=== PATIENT | male | born 1970 | race American Indian/Alaskan Native ===

== ENCOUNTER 2019-03-11 22:19 | Inpatient (IN) | payer MEDICAID ==
[~2019-03-11] VITALS: Ht 180.3 cm; Wt 70.5 kg
[2019-03-12 01:00] VITALS: BP 119/80
--- NOTE | 2019-03-12 01:10 | NUR ---
ROUTEMAN NOTE: LEGAL HOLD: 5150 for DTS. Self-inflicted laceration on Lt forearm. Client used a razor to cut arm down to the tendon requiring sutures. Hx ETOH use. THIS SHIFT: Client transferred from [facility], [facility]. Client arrived on unit at 00:30 accompanied by Buster Conde and . Client stated, "I have no family." and reported feelings of hopelessness and depression. Client is currently homeless. Client is a thin, 48 yo male, who appears older than his stated age. Reports "binge" drinking and regularly drinks "four drinks a day". Denies any ETOH withdrawal symptom. Client showered, personal belongings were inventoried, given a sandwich a beverage. Cooperative with admission. Client reported to staff at [facility], "I'll kill myself if I leave." Client is a high risk for suicide. Needs med stabilization for depression.
[2019-03-12] MEDS ORDERED: loperamide 2mg capsule PO PRN (01:25)
[2019-03-12] MEDS ORDERED: acetaminophen 325mg tablet PO PRN ×2 (01:25)
[2019-03-12] MEDS ORDERED: hydrOXYzine 25 MG tablet PO PRN (01:30)
[2019-03-12] MEDS ORDERED: mag hydrox/Alum hydrox/simeth 30ml oral suspension PO PRN (01:30)
[2019-03-12] MEDS ORDERED: LORazepam 1 MG tablet PO PRN (01:30)
[2019-03-12] MEDS ORDERED: magnesium hydroxide 30ml (MOM) UD suspension PO PRN (01:30)
[2019-03-12] MEDS ORDERED: Melatonin 3mg tablet PO PRN (01:55)
[2019-03-12] MEDS: ibuprofen tablet 400 MG TABLET PO PRN ×2 (01:56→14:00)
[2019-03-12 07:39] VITALS: BP 115/65
[2019-03-12] MEDS: NICOTINE POLACRILEX 2 MG LOZENGE BC PRN ×4 (07:39→20:37)
[2019-03-12 09:05] LABS: HEMOGLOBIN A1C 5.3 % (4.5-6.2)
[2019-03-12 09:09] LABS: CHOL/HDL RATIO 2.5 (0.00-4.99); CHOLESTEROL 188 MG/DL (0-200); HDL CHOLESTEROL 76 MG/DL (35-60); LDL CHOLESTEROL 101 MG/DL (50-100); TRIGLYCERIDES 99 MG/DL (20-135)
--- NOTE | 2019-03-12 14:16 | NUR ---
Procedure note: Redressed client bandage on left forearm due to patient request. Lesion is well approximated with no signs of erythema or edema noted. There was a scant amount of dried blood on the old dressing but no odor or S/S of infection were noted. Client tolerated procedure very well.
[2019-03-12] MEDS ORDERED: HYDROcodone/acetaminophen 10/325mg tab PO PRN (14:30)
--- NOTE | 2019-03-12 15:37 | NUR ---
RN Progress note: Jin Report received from Janae MENDOZA Why are they here: LEGAL HOLD: 5150 for DTS. Self-inflicted laceration on Lt forearm. Client used a razor to cut arm down to the tendon requiring sutures. Hx ETOH use. Client transferred from [facility], [facility]. Client arrived on unit at 00:30 accompanied by Buster Conde and . Client stated, "I have no family." and reported feelings of hopelessness and depression. Client is currently homeless. Client is a thin, 48 yo male, who appears older than his stated age. Reports "binge" drinking and regularly drinks "four drinks a day". Denies any ETOH withdrawal symptom. Client showered, personal belongings were inventoried, given a sandwich a beverage. Cooperative with admission. Client reported to staff at [facility], "I'll kill myself if I leave." Client is a high risk for suicide. Needs med stabilization for depression. Assessment: What happened this shift: Client in bed to begin shift resting with eyes closed. Compliant with am assessment. Client given prn of Nicotine Lozenge and Ativan 1 mg with am med pass. Reassessed client one hour after Ativan and he verbalized that he received good effect from the medication. Client also asked for and received prn med for pain. Client has been visible on unit and had his dressing changed today by this specification writer. (see note). No behavioral issues noted as of this writing. He is able to contract for safe unit behaviors but feels he would try to complete a suicide if released. S/I H/I: Currently denies. States, " I feel safe today" A/V H: Denies currently Sleep: Client stated that he slept well when assessed this am. ADl's: Independent Group attendance: no Were meds taken: Yes Med S/E: none noted Mental Status Exam: Appearance: Neat, clean and appropriate for unit. Eye contact: direct Behavior: Speech: pressured Mood: Affect: Thought process: Thought content: Cognition: Insight: Judgement: Interventions: PRN use: Therapeutic interventions: Ensured contract for safety, maintained a safe and supportive environment, encouraged independent performance of ADLs, monitored behavior and need for intervention, educated to pt. to let staff know if he continues to experience insomnia, and maintained Q 15 min safety checks. Restraints/seclusion/emergency medication: N/A Justification of Continued Inpatient Treatment: Harjeet Briggs, pt. continues to have poor insight and remains at high risk for discharge. She requires medication adjustments, and a safe and therapeutic environment.
[2019-03-12 19:00] VITALS: BP 116/77
[2019-03-12] MEDS: HYDROcodone/acetaminophen 10/325mg tab PO PRN (20:37)
--- NOTE | 2019-03-13 01:46 | NUR ---
NURSING PROGRESS NOTE: Legal Hold: 5150 Exp 03/15 @ 0030 Client involuntary status: DTS Report received from DAPHNIE Whiting use of SBAR Why are they here: Self-inflicted laceration on left forearm. Client used a razor to cut arm down to the tendon requiring sutures. Hx ETOH use, grief, loss and trauma. Pt depressed and hopeless. Pt reported to staff at [facility], "I will kill myself if I leave." Client high risk for suicide. Assessment: What happened this shift: Patient was observed in rec room watching T.V at shift change. Pt smiled and waved when approached. Pt is cooperative c/o of his left forearm dressing being to tight. Redressed left arm, assessed wound. No s/s of infection, no erythema noted. When asked what he thinks when he looks at his wound "I am still numb, but I know a higher power has plans for me." When asked how his day was pt stated "I wasn't sure if this was the right place for me, but every one is nice." Pt was medication compliant. Pt denies SI, but answers hesitantly. Pt denies A/VH. Reiterated to patient if he had trouble sleeping that he had a sleep aid available to him. Pt sleeping at time of this report. S/I H/I: Currently denies. States, " I feel safe today" A/V H: Pt denies Sleep: See sleep assessment notation. 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 Mental Status Exam: Appearance: Neat, clean and appropriate for unit. Eye contact: Direct Behavior: Cooperative, guarded Speech: Clear, normal rate and rhythm Mood: "Better" Affect: Blunted with some brightening Thought process: Linear Thought content: "There may be hope" Cognition: A&Ox4 Insight: Fair Judgement: Poor Interventions: PRN use: None Therapeutic interventions: 1:1 therapeutic assessment, provided active listening, medication administration/education/monitoring, dressing change, ensured contract for safety, Q15 min safety checks. Restraints/seclusion/emergency medication: N/A Justification of Continued Inpatient Treatment: Per MARCK Briggs, patient continues to have poor insight and remains at high risk for discharge. He requires medication adjustments, and a safe and therapeutic environment.
[2019-03-13 08:00] VITALS: BP 107/62
[2019-03-13] MEDS: NICOTINE POLACRILEX 2 MG LOZENGE BC PRN ×3 (08:01→16:21)
[2019-03-13] MEDS: HYDROcodone/acetaminophen 10/325mg tab PO PRN ×2 (08:01→16:20)
[2019-03-13] MEDS ORDERED: NO HOME MEDS (10:36)
[2019-03-13] MEDS: ibuprofen tablet 400 MG TABLET PO PRN (13:03)
--- NOTE | 2019-03-13 16:10 | NUR ---
NURSING PROGRESS NOTE: Jaron Legal Hold: 5150 Exp 03/15 @ 0030 Client involuntary status: DTS Report received from DAPHNIE Betancourt use of SBAR Why are they here: Self-inflicted laceration on left forearm. Client used a razor to cut arm down to the tendon requiring sutures. Hx ETOH use, grief, loss and trauma. Pt depressed and hopeless. Pt reported to staff at [facility], "I will kill myself if I leave." Client high risk for suicide. Assessment: What happened this shift: Patient approached this selling underwriter in the egan. He was concerned about documenting which foods he could eat on his diet. This followed him receiving 1 small muffin on his breakfast tray. Spoke with dietary and they were able to correct the problem in the computer, he then received a late tray. Patient out on unit, very helpful with staff and others. Showered, dressing to left forearm reapplied. Denies SI, states if this didnt work (pointing to his arm), it is from (looking up to richard). Patient out of room most of day, attended morning group and occupied himself by reading and watching TV. Dressing applied late afternoon as laceration was partially exposed. Cut coban and gauze into 12 inch strips for safety. S/I H/I: Denies A/V H: Pt denies Sleep: 5.5 ADl's: Independent Group attendance: Yes Were meds taken: has no regular medications ordered Med S/E: None reported or observed. Mental Status Exam: Appearance: Neat, clean and appropriate for unit. Eye contact: Direct Behavior: Cooperative, guarded Speech: Clear, normal rate and rhythm Mood: "Better" Affect: Blunted with some brightening Thought process: Linear Thought content: getting back to traveling, staying sober Cognition: A&Ox4 Insight: Fair Judgement: Poor Interventions: PRN use: None Therapeutic interventions: 1:1 therapeutic assessment, provided active listening, medication administration/education/monitoring, dressing change, ensured contract for safety, Q15 min safety checks. Restraints/seclusion/emergency medication: N/A Justification of Continued Inpatient Treatment: Per MARCK Briggs, patient continues to have poor insight and remains at high risk for discharge. He requires medication adjustments, and a safe and therapeutic environment.
[2019-03-13 19:00] VITALS: BP 130/82
--- NOTE | 2019-03-14 00:57 | NUR ---
NURSING PROGRESS NOTE: Legal Hold: 5150 Exp 03/15 @ 0030 Client involuntary status: DTS Report received from DAPHNIE Whiting use of SBAR Why are they here: Self-inflicted laceration on left forearm. Client used a razor to cut arm down to the tendon requiring sutures. Hx ETOH use, grief, loss and trauma. Pt depressed and hopeless. Pt reported to staff at [facility], "I will kill myself if I leave." Client high risk for suicide. Assessment: What happened this shift: The patient was found in the rec room at shift change. He agreed to 1:1 at his bedside. The patient is calm and cooperative as he talks about his travels and how he ended up in [place]. "I'm looking for beauty, and spirituality in a place that will promote my love for music, and its creation. A place that will help me stay in balance with my spiritual beliefs." The patient was visible on the unit all evening, mostly watching TV in the rec room. The patient reports depression related to grief and loss, but says he will not harm himself while here. He was compliant with medications and went to bed soon after. S/I H/I: Denies A/V H: Denies Sleep: See sleep assessment notation. ADl's: Independent Group attendance: No groups at night. Were meds taken: Medication compliant Med S/E: None reported or observed. Mental Status Exam: Appearance: Neat, clean, wearing street clothes. Eye contact: Direct Behavior: Cooperative, guarded Speech: Clear, normal rate and rhythm Mood: "Fairly good." Affect: Blunted. Thought process: Linear, goal directed Thought content: Religiously preoccupied Cognition: A&Ox4 Insight: Fair Judgement: Poor Interventions: PRN use: None Therapeutic interventions: 1:1 therapeutic assessment, provided active listening, medication administration/education/monitoring, dressing change, ensured contract for safety, Q15 min safety checks. Restraints/seclusion/emergency medication: N/A Justification of Continued Inpatient Treatment: Per MARCK Briggs, patient continues to have poor insight and remains at high risk for discharge. He requires medication adjustments, and a safe and therapeutic environment.
[2019-03-14] MEDS: HYDROcodone/acetaminophen 10/325mg tab PO PRN ×3 (07:13→20:36)
[2019-03-14 07:52] VITALS: BP 121/70
[2019-03-14] MEDS: NICOTINE POLACRILEX 2 MG LOZENGE BC PRN ×3 (10:39→18:06)
[2019-03-14] MEDS: ibuprofen tablet 400 MG TABLET PO PRN (11:25)
--- NOTE | 2019-03-14 15:02 | NUR ---
NURSING PROGRESS NOTE: Jaron Legal Hold: 5150 Exp 03/15 @ 0030 Client involuntary status: DTS Report received from DAPHNIE Whiting use of SBAR Why are they here: Self-inflicted laceration on left forearm. Client used a razor to cut arm down to the tendon requiring sutures. Hx ETOH use, grief, loss and trauma. Pt depressed and hopeless. Pt reported to staff at [facility], "I will kill myself if I leave." Client high risk for suicide. Assessment: What happened this shift: Patient was up and awake at change of shift. States improvement in depression. Feels frustrated that people seem to expect him to have more specific plans upon discharge. He hopes to find work upon discharge to earn enough money to meet his basic needs and travel. Spoke a lot about his time in [place] and hopes to return some day. Provided patient with the unit guitar which he played beautifully, although did cause some increasing pain to left arm. [place] changed from Q8H to Q6H. Wound is well approximated, no s/s of infection, clean dressing applied and provided education on hand washing and infection control. S/I H/I: Denies A/V H: Denies Sleep: 8 ADl's: Independent Group attendance: No Group Were meds taken: Medication compliant Med S/E: None reported or observed. Mental Status Exam: Appearance: Neat, clean, wearing street clothes. Eye contact: Direct Behavior: Cooperative, tearful at times causing him to be more guarded Speech: Clear, normal rate and rhythm Mood: "Fairly good." Affect: Appropriate Thought process: Linear, goal directed Thought content: Plans for discharge, future plans, past regrets Cognition: A&Ox4 Insight: Fair Judgment: Fair Interventions: PRN use: Nicotine lozenge, [place] Motrin Therapeutic interventions: 1:1 therapeutic assessment, provided active listening, medication administration/education/monitoring, dressing change, ensured contract for safety, Q15 min safety checks. Restraints/seclusion/emergency medication: N/A Justification of Continued Inpatient Treatment: Per MARCK Briggs, patient continues to have poor insight and remains at high risk for discharge. He requires medication adjustments, and a safe and therapeutic environment.
[2019-03-14 19:57] VITALS: BP 129/87
--- NOTE | 2019-03-15 02:41 | NUR ---
NURSING PROGRESS NOTE: Legal Hold: 5150 Exp 03/15 @ 0030 Client involuntary status: DTS Report received from DAPHNIE Whiting use of SBAR Why are they here: Self-inflicted laceration on left forearm. Client used a razor to cut arm down to the tendon requiring sutures. Hx ETOH use, grief, loss and trauma. Pt depressed and hopeless. Pt reported to staff at [facility], "I will kill myself if I leave." Client high risk for suicide. Assessment: What happened this shift: The patient was found in the group room playing guitar. His mood is upbeat, and he's enjoying sharing his talents. He goes on to talk about all the places he's been and still wants to go. 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 "I've made money using my skills, and will again." He reports his confidence increasing and depression decreasing, along with his arm pain, which is better with [place]. Wound dressing remains clean, dry, and intact. The patient went to bed after HS med pass. S/I H/I: Denies A/V H: Denies Sleep: See sleep assessment notation. ADl's: Independent Group attendance: No groups at night. Were meds taken: Medication compliant Med S/E: None reported or observed. Mental Status Exam: Appearance: Neat, clean, wearing plaid shirt and Gerard. Eye contact: Direct Behavior: Cooperative, guarded Speech: Clear, normal rate and rhythm Mood: "Pretty good." Affect: Brightening. Thought process: Linear, goal directed Thought content: Religiously preoccupied Cognition: A&Ox4 Insight: Fair Judgement: Poor Interventions: PRN use: [place] x1 Therapeutic interventions: 1:1 therapeutic assessment, provided active listening, medication administration/education/monitoring, dressing change, ensured contract for safety, Q15 min safety checks. Restraints/seclusion/emergency medication: N/A Justification of Continued Inpatient Treatment: Per MARCK Briggs, patient continues to have poor insight and remains at high risk for discharge. He requires medication adjustments, and a safe and therapeutic environment.
[2019-03-15] MEDS: ibuprofen tablet 400 MG TABLET PO PRN (07:58)
[2019-03-15 08:00] VITALS: BP 109/73
[2019-03-15] MEDS: NICOTINE POLACRILEX 2 MG LOZENGE BC PRN ×5 (08:00→17:47)
[2019-03-15] MEDS: HYDROcodone/acetaminophen 10/325mg tab PO PRN ×3 (08:00→20:21)
--- NOTE | 2019-03-15 14:51 | NUR ---
NURSING PROGRESS NOTE: Jaron Legal Hold: 5150 Exp 03/15 @ 1705 Client involuntary status: DTS Report received from DAPHNIE Barbosa use of SBAR Why are they here: Self-inflicted laceration on left forearm. Client used a razor to cut arm down to the tendon requiring sutures. Hx ETOH use, grief, loss and trauma. Pt depressed and hopeless. Pt reported to staff at [facility], "I will kill myself if I leave." Client high risk for suicide. Assessment: What happened this shift: Patient was sleeping at change of shift. Upon awaking he was pleasant, interacting with other clients. Waited until this pattern chart writer had completed all med. Passes before asking for his pain meds. Following breakfast he requested guitar and appeared to enjoy playing for others on the unit. His mood is more elevated than yesterday with reported less depression. 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 Attends and participates in all groups. Dressing reapplied following shower, wound remains C D & I. No S/S of infection, provided ongoing education for proper handwashing and s/s of infection. S/I H/I: Denies A/V H: Denies Sleep: 7.3. ADl's: Independent Group attendance: Yes. Were meds taken: Medication compliant Med S/E: None reported or observed. Mental Status Exam: Appearance: Neat, clean, wearing plaid shirt and Ger[place]. Eye contact: Direct Behavior: Cooperative Speech: Clear, normal rate and rhythm Mood: "Pretty good." Affect: Brightening. Thought process: Linear, goal directed Thought content: Religiously preoccupied "I am still here for a reason" Cognition: A&Ox4 Insight: Fair Judgement: Poor Interventions: PRN use: [place] x1 Therapeutic interventions: 1:1 therapeutic assessment, provided active listening, medication administration/education/monitoring, dressing change, ensured contract for safety, Q15 min safety checks. Restraints/seclusion/emergency medication: N/A Justification of Continued Inpatient Treatment: Per MARCK Briggs, patient continues to have poor insight and remains at high risk for discharge. He requires medication adjustments, and a safe and therapeutic environment.
[2019-03-15 20:00] VITALS: BP 123/77
--- NOTE | 2019-03-15 21:50 | NUR ---
NURSING PROGRESS NOTE: Legal Hold: 5150 Exp 03/15 @ 0030 Client involuntary status: DTS Report received from DAPHNIE Whiting use of SBAR Why are they here: Self-inflicted laceration on left forearm. Client used a razor to cut arm down to the tendon requiring sutures. Hx ETOH use, grief, loss and trauma. Pt depressed and hopeless. Pt reported to staff at [facility], "I will kill myself if I leave." Client high risk for suicide. Assessment: What happened this shift: The patient was in the Group room at shift change. He agreed to 1:1 at his bedside. The patient reports feeling upbeat, less depressed, and more engaged with others. He is denying SI/HI at this time. "If I couldn't kill myself this time...It must have been divine intervention, and I'm not supposed to yet." As time passes, the patient continues to gain confidence in music and also socializing. He spends most of the day out of his room with other clients. His wound dressing was changed today, and it remains clean. The patient was provided a Tensed, then went to bed. S/I H/I: Denies A/V H: Denies Sleep: See sleep assessment notation. ADl's: Independent Group attendance: No groups at night. Were meds taken: Medication compliant Med S/E: None reported or observed. Mental Status Exam: Appearance: Neat, clean, wearing plaid shirt and shorts.. Eye contact: Direct Behavior: Cooperative Speech: Clear, normal rate and rhythm Mood: "Better." Affect: Bright. Thought process: Linear, goal directed Thought content: Religiously preoccupied Cognition: A&Ox4 Insight: Fair Judgement: Poor Interventions: PRN use: [place] x1 Therapeutic interventions: 1:1 therapeutic assessment, provided active listening, medication administration/education/monitoring, dressing change, ensured contract for safety, Q15 min safety checks. Restraints/seclusion/emergency medication: N/A Justification of Continued Inpatient Treatment: Per MARCK Briggs, patient continues to have poor insight and remains at high risk for discharge. He requires medication adjustments, and a safe and therapeutic environment.
[2019-03-16 08:00] VITALS: BP 104/54
[2019-03-16] MEDS: NICOTINE POLACRILEX 2 MG LOZENGE BC PRN ×7 (08:40→20:18)
[2019-03-16] MEDS: HYDROcodone/acetaminophen 10/325mg tab PO PRN ×3 (08:41→20:18)
[2019-03-16] MEDS: ibuprofen tablet 400 MG TABLET PO PRN (10:49)
--- NOTE | 2019-03-16 16:01 | NUR ---
Nursing PROGRESS NOTE: Jaron Jin Legal Hold: 5150 Exp 03/15 @ 0030 Client involuntary status: DTS Report received from DAPHNIE Whiting use of SBAR Why are they here: Self-inflicted laceration on left forearm. Client used a razor to cut arm down to the tendon requiring sutures. Hx ETOH use, grief, loss and trauma. Pt depressed and hopeless. Pt reported to staff at [facility], "I will kill myself if I leave." Client high risk for suicide. Assessment: What happened this shift: Client was in bed to start the shift but woke easily for assessment and prn medications. No behavioral issues noted. Patient is visible and social on unit. Played guitar and sang for Group activities today. Client has utilized prn medications in the form of Nicotine replacement as well as pain medication for sore left arm. Client is very social and helpful to his peers and is amicable to his treatment. No behavioral issues this shift. S/I H/I: Denies A/V H: Denies Sleep: ADl's: Independent Group attendance: yes Were meds taken: Medication compliant Med S/E: None reported or observed. Mental Status Exam: Appearance: Neat, clean, wearing plaid shirt and shorts.. Eye contact: Direct Behavior: Cooperative Speech: Clear, normal rate and rhythm Mood: " doing good man" Affect: Bright. Thought process: Linear, goal directed Thought content: Cognition: A&Ox4 Insight: Fair Judgement: Poor Interventions: PRN use: [place] x1 and Nicotine Lozenge x 2 Therapeutic interventions: 1:1 therapeutic assessment, provided active listening, medication administration/education/monitoring, dressing change, ensured contract for safety, Q15 min safety checks. Restraints/seclusion/emergency medication: N/A Justification of Continued Inpatient Treatment: Per MARCK Briggs, patient continues to have poor insight and remains at high risk for discharge. He requires medication adjustments, and a safe and therapeutic environment.
[2019-03-16] MEDS: traZODone 50mg tablet PO PRN (20:19)
[2019-03-16 20:32] VITALS: BP 128/75
--- NOTE | 2019-03-17 02:31 | NUR ---
NURSING PROGRESS NOTE: Legal Hold: 5150 Exp 03/15 @ 0030 Client involuntary status: DTS Report received from DAPHNIE Whiting use of SBAR Why are they here: Self-inflicted laceration on left forearm. Client used a razor to cut arm down to the tendon requiring sutures. Hx ETOH use, grief, loss and trauma. Pt depressed and hopeless. Pt reported to staff at [facility], "I will kill myself if I leave." Client high risk for suicide. Assessment: What happened this shift: The patient was seen in his room for 1:1. He spends time on the unit talking to others or playing guitar. This patient has been totally cooperative since being here, and is reporting positive things. 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 He knows that staying in [place] decreases his discharge options, but is willing to take a chance. "I'm a Nomad, and don't require much as long as I'm near nature." The patient went to bed right after HS med pass. S/I H/I: Denies A/V H: Denies Sleep: See sleep assessment notation. ADl's: Independent Group attendance: No groups at night. Were meds taken: Medication compliant Med S/E: None reported or observed. Mental Status Exam: Appearance: Neat, clean, wearing plaid shirt and shorts. Eye contact: Direct Behavior: Cooperative, sings and plays guitar Speech: Clear, normal rate and rhythm Mood: "For the most part good." Affect: Bright. Thought process: Linear, goal directed Thought content: Focused on good discharge. Cognition: A&Ox4 Insight: Fair Judgement: Poor Interventions: PRN use: [place] x1, [place] Therapeutic interventions: 1:1 therapeutic assessment, provided active listening, medication administration/education/monitoring, dressing change, ensured contract for safety, Q15 min safety checks. Restraints/seclusion/emergency medication: N/A Justification of Continued Inpatient Treatment: Per MARCK Briggs, patient continues to have poor insight and remains at high risk for discharge. He requires medication adjustments, and a safe and therapeutic environment.
[2019-03-17] MEDS: NICOTINE POLACRILEX 2 MG LOZENGE BC PRN ×6 (07:46→21:42)
[2019-03-17] MEDS: HYDROcodone/acetaminophen 10/325mg tab PO PRN ×3 (07:47→21:43)
[2019-03-17 08:00] VITALS: BP 108/58
[2019-03-17] MEDS: ibuprofen tablet 400 MG TABLET PO PRN (10:48)
--- NOTE | 2019-03-17 11:45 | NUR ---
S;S Left message for [facility] at [facility] to discuss placement for pt.
--- NOTE | 2019-03-17 15:53 | NUR ---
Initial: patient eating well on avergae 75-100% PO intake, appetite is great. No nutrition concerns at this time. Recommend: 1. continue regular diet 2. weekly weights Addendum: 03/17/19 at [address] Amended: Links added.
--- NOTE | 2019-03-17 16:36 | NUR ---
Nursing PROGRESS NOTE Legal Hold: VOL Client involuntary status: DTS Report received from DAPHNIE Grant use of SBAR Why are they here: Self-inflicted laceration on left forearm. Client used a razor to cut arm down to the tendon requiring sutures. Hx ETOH use, grief, loss and trauma. Pt depressed and hopeless. Pt reported to staff at [facility], "I will kill myself if I leave." Client high risk for suicide. Assessment: What happened this shift: Patient is observed walking the halls at change of shift. Patient is approachable and friendly. He states that his arm is in pain this morning, requests norco and nicotine lozenge. Patient states that he did not sleep well last night and was practicing meditation. He shares his alternative beliefs and states that he has found great comfort in them. He states that he feels stressed r/t his discharge plan and not having a place to go. S/I H/I: Denies A/V H: Denies Sleep:6.5hrs NOC ADl's: Independent Group attendance: yes Were meds taken: patient expresses desire to not take a lot of medications, PRN meds prescribed only. Med S/E: None reported or observed. Mental Status Exam: Appearance: Clean, dressed in own clothing Eye contact: Direct Behavior: Cooperative Speech: Clear, normal rate and rhythm, soft tone Mood: content Affect: congruent to mood Thought process: Linear, goal directed Thought content: discharge plans r/t housing Cognition: A&Ox4 Insight: Fair Judgement: Poor Interventions: PRN use: [place] x2, motrin and Nicotine Lozenge x 3 Therapeutic interventions: 1:1 therapeutic assessment, maintained safe therapeutic milieu, provided active listening with positive reinforcement, provided medication administration/education/monitoring as needed; Q15 safety checks. Restraints/seclusion/emergency medication: N/A Justification of Continued Inpatient Treatment: Per MARCK Briggs, patient continues to have poor insight and remains at high risk for discharge. Continued therapeutic support and medication management needed to provide stabilization, prevent decompensation, improve coping mechanisms decreasing risk to patient and re-admittance.
[2019-03-17 19:57] VITALS: BP 121/71
--- NOTE | 2019-03-18 04:18 | NUR ---
Nursing PROGRESS NOTE Legal Hold: VOL Client involuntary status: DTS Report received from DAPHNIE Nicole use of SBAR Why are they here: Self-inflicted laceration on left forearm. Client used a razor to cut arm down to the tendon requiring sutures. Hx ETOH use, grief, loss and trauma. Pt depressed and hopeless. Pt reported to staff at [facility], "I will kill myself if I leave." Client high risk for suicide. Assessment: What happened this shift: Patient visible on the unit at the beginning of shift. Patient wound site with apollo DAXA, no s/s of infection. Patient c/o 6/10 pain and [place] provided and effective. Patient provided nicotine qi upon request. Patient pleasant and cooperative, endorses depression and denies SI, HI, A/VH. Patient attended group room for HS snack where he sat and watched TV with peers for a while. S/I H/I: Denies A/V H: Denies Sleep:asleep at this time ADl's: Independent Group attendance: no groups this shift Were meds taken: no scheduled medication Med S/E: None reported or observed. Mental Status Exam: Appearance: Clean, dressed in own clothing Eye contact: Direct Behavior: Cooperative Speech: Clear, normal rate and rhythm, soft tone Mood: animated Affect: congruent to mood Thought process: Linear, goal directed Thought content: unable to assess Cognition: A&Ox4 Insight: Fair Judgement: Poor Interventions: PRN use: [place] and Nicotine Lozenge Therapeutic interventions: 1:1 therapeutic assessment, maintained safe therapeutic milieu, provided active listening with positive reinforcement, provided medication administration/education/monitoring as needed; Q15 safety checks. Restraints/seclusion/emergency medication: N/A Justification of Continued Inpatient Treatment: Per MARCK Briggs, patient continues to have poor insight and remains at high risk for discharge. Continued therapeutic support and medication management needed to provide stabilization, prevent decompensation, improve coping mechanisms decreasing risk to patient and re-admittance.
[2019-03-18 07:59] VITALS: BP 112/67
[2019-03-18] MEDS: HYDROcodone/acetaminophen 10/325mg tab PO PRN ×3 (08:31→21:26)
[2019-03-18] MEDS: NICOTINE POLACRILEX 2 MG LOZENGE BC PRN ×6 (08:31→21:25)
[2019-03-18] MEDS: ibuprofen tablet 400 MG TABLET PO PRN (10:38)
--- NOTE | 2019-03-18 17:15 | NUR ---
Nursing PROGRESS NOTE Legal Hold: VOL Client involuntary status: DTS Report received from DAPHNIE Grant use of SBAR Why are they here: Self-inflicted laceration on left forearm. Client used a razor to cut arm down to the tendon requiring sutures. Hx ETOH use, grief, loss and trauma. Pt depressed and hopeless. Pt reported to staff at [facility], "I will kill myself if I leave." Client high risk for suicide. Assessment: What happened this shift: Patient visible on the unit at the beginning of shift. Patient wound site with apollo DAXA, no s/s of infection. Patient c/o 7 pain and [place] provided and effective. Patient provided nicotine qi upon request. Patient pleasant and cooperative, endorses depression and denies SI, HI, A/VH. Pt. reports he is thankful to have survived his suicide attempt, pt. states, "I looked up the right way to do it and I failed. God protected me." Pt. given [place] in afternoon for 01/06 pain. S/I H/I: Denies A/V H: Denies Sleep: Pt. napped x1 ADl's: Independent Group attendance: Yes Were meds taken: Yes Med S/E: None reported or observed. Mental Status Exam: Appearance: Clean, dressed in own clothing Eye contact: Direct Behavior: Cooperative, pt. seen interacting appropriately with other patients and staff. Speech: Clear, normal rate and rhythm, soft tone Mood: bright but appears depressed at times. Affect: congruent to mood Thought process: Linear, goal directed Thought content: planning for future. Cognition: A&Ox4 Insight: Fair Judgement: Poor Interventions: PRN use: [place] and Nicotine Lozenge Therapeutic interventions: 1:1 therapeutic assessment, maintained safe therapeutic milieu, provided active listening with positive reinforcement, provided medication administration/education/monitoring as needed; Q15 safety checks. Restraints/seclusion/emergency medication: N/A Justification of Continued Inpatient Treatment: Per MARCK Briggs, patient continues to have poor insight and remains at high risk for discharge. Continued therapeutic support and medication management needed to provide stabilization, prevent decompensation, improve coping mechanisms decreasing risk to patient and re-admittance.
[2019-03-18 20:00] VITALS: BP 101/80
--- NOTE | 2019-03-19 03:45 | NUR ---
Nursing PROGRESS NOTE Legal Hold: VOL Client involuntary status: DTS Report received from DAPHNIE Aguilera use of SBAR Why are they here: Self-inflicted laceration on left forearm. Client used a razor to cut arm down to the tendon requiring sutures. Hx ETOH use, grief, loss and trauma. Pt depressed and hopeless. Pt reported to staff at [facility], "I will kill myself if I leave." Client high risk for suicide. Assessment: What happened this shift: Patient playing cards with group of peers in the group room at the beginning of shift. Patient cautious with the healing of his L wrist laceration. He explained itching and area slightly pink. This administrative underwriter educated patient to resist scratching or placing fingers over wound site. Area surrounding is CDI. PRN [place] provided upon patient request for 7/10 L wrist pain, effective. Patient denied all symptoms. Patient continued to engage in conversation with peers, pacing the egan with peer talking about future plans. Patient perseverates on next nicotine dose, asking for lozenge close to an hour each time. S/I H/I: Denies A/V H: Denies Sleep:asleep at this time ADl's: Independent Group attendance: no groups this shift Were meds taken: no scheduled medication Med S/E: None reported or observed. Mental Status Exam: Appearance: Clean, dressed in own clothing Eye contact: Direct Behavior: Cooperative Speech: Clear, normal rate and rhythm, soft tone Mood: animated Affect: congruent to mood Thought process: Linear, goal directed Thought content: perseverates on next nicotine dose, future plans Cognition: A&Ox4 Insight: Fair Judgement: Poor Interventions: PRN use: [place] and Nicotine Lozenge Therapeutic interventions: 1:1 therapeutic assessment, maintained safe therapeutic milieu, provided active listening with positive reinforcement, provided medication administration/education/monitoring as needed; Q15 safety checks. Restraints/seclusion/emergency medication: N/A Justification of Continued Inpatient Treatment: Per MARCK Briggs, patient continues to have poor insight and remains at high risk for discharge. Continued therapeutic support and medication management needed to provide stabilization, prevent decompensation, improve coping mechanisms decreasing risk to patient and re-admittance.
[2019-03-19 07:28] VITALS: BP 112/67
[2019-03-19] MEDS: sertraline 25mg tablet PO SCH (07:38)
[2019-03-19] MEDS: NICOTINE POLACRILEX 2 MG LOZENGE BC PRN ×7 (07:41→21:04)
[2019-03-19] MEDS: HYDROcodone/acetaminophen 10/325mg tab PO PRN ×3 (07:41→21:04)
--- NOTE | 2019-03-19 14:56 | NUR ---
Nursing PROGRESS NOTE: Davin Legal Hold: VOL Client involuntary status: DTS Report received from CRN Why are they here: Self-inflicted laceration on left forearm. Client used a razor to cut arm down to the tendon requiring sutures. Hx ETOH use, grief, loss and trauma. Pt depressed and hopeless. Pt reported to staff at [facility], "I will kill myself if I leave." Client high risk for suicide. Assessment: What happened this shift: Client was asleep to begin shift. When he woke, he requested "pain med and a lozenge" and was given both per orders with good effect obtained. Client was compliant with assessment and medication and went to Group Room for breakfast meal. Client requests PRN medication right on the due time and he requests Nicotine replacement as well as [place] on or before time to dispense. Client has no plans for discharge but understands the challenges. Left forearm laceration is healing but the distal portion of the wound is not approximated and has a small discharge according to patient. Dr. Dunlap will be made aware of the condition of wound when he arrives on unit today. Dr. Dunlap was made aware of issue and ordered dressing change bid. Cover distal portion of wound with Triple Antibiotic Ointment, cover with sterile 2x2 and secure. This order is to occur BID.Client attended Group activities today and seems future and goal oriented. Dressing was changed once this shift per orders. Distal portion of left arm wound is erythemetous with mild edema present. Client denies any further symptoms such as itch or pain this afternoon. Compliant with all aspects of his care today. He still has concerns regarding discharge and will require 1:1 discussions to help him process the eventual discharge. S/I H/I: Denies A/V H: Denies Sleep: ADl's: Independent Group attendance: yes Were meds taken: yes Med S/E: None reported or observed. Mental Status Exam: Appearance: Clean, dressed in own clothing Eye contact: Direct Behavior: Cooperative Speech: Clear, normal rate and rhythm, soft tone Mood: animated Affect: congruent to mood Thought process: Linear, goal directed Thought content: perseverates on next nicotine dose, future plans, pain medications Cognition: A&Ox4 Insight: Fair Judgement: Improving Interventions: PRN use: [place] and Nicotine Lozenge Therapeutic interventions: 1:1 therapeutic assessment, maintained safe therapeutic milieu, provided active listening with positive reinforcement, provided medication administration/education/monitoring as needed; Q15 safety checks. Restraints/seclusion/emergency medication: N/A Justification of Continued Inpatient Treatment: Per MARCK Briggs, patient continues to have poor insight and remains at high risk for discharge. Continued therapeutic support and medication management needed to provide stabilization, prevent decompensation, improve coping mechanisms decreasing risk to patient and re-admittance.
[2019-03-19] MEDS: ibuprofen tablet 400 MG TABLET PO PRN (19:05)
[2019-03-19 20:00] VITALS: BP 137/74
--- NOTE | 2019-03-20 02:46 | NUR ---
Nursing Progress Note: Legal hold: Voluntary Client on voluntary DTS Report received from nurse with use of SBAR: DAPHNIE Aguilera Why are they here: Pt. transferred from [facility] after a suicide attempt with a self-inflicted laceration on left forearm. He had used a razor to cut arm down to the tendon, requiring sutures. Pt. has a hx of ETOH use, grief ( of mother, son, and step-father), and trauma. He is homeless with no support system. Pt is depressed, hopeless, and is a high suicide risk. Assessment What has happened this shift: Pt. up in the hallway pacing at the beginning of the shift, interacting appropriately with others, and greets staff animatedly. He then requests PRN Motrin for chronic left arm pain r/t self-inflicted laceration, and Nicotine Lozenge. 1:1 completed at bedside, pt. denies S/I, however reports ongoing anxiety, states, "I am still adjusting to this place, but I am hoping to eventually go to [facility]." He reports that he is still feeling somewhat hopeless at times, has no friends or family, has lived a nomadic lifestyle for the past 6 years, but finally feels ready to settle here in [place]. Pt. requests additional pain medication at , and PRN [place] administered with effectiveness. Ordered dressing change to left FA completed, pt. tolerated well, and sutures remain intact, will continue to monitor. S/I, H/I: Denies A/VH: Denies Sleep: Pt reports some difficulty falling asleep, PRN Melatonin administered with effectiveness. ADL's: Independent Group attendance: Pt. reports he attends groups, identifies coping mechanisms as breathing and meditation. Were meds taken: Yes Any med S/E: None Mental Status Exam Appearance: Neat and well dressed Eye contact: Good Behavior: Cooperative, slightly restless with pacing Speech: Soft, WNL Mood: Pleasant, slightly restless Affect: Blunted with animation Thought process: WNL Thought Content: Some phobia regarding discharge Cognition: A&O X4 Insight: Fair Judgment: Fair Interventions PRN's used: Motrin, [place], Nicotine Lozenge X2, and Melatonin Therapeutic interventions: Introduced self and established rapport, ensured contract for safety, maintained a safe and supportive environment, observed behaviors and need for intervention, provided active listening, completed dressing change per orders, and maintained Q 15 min safety checks. Restraints/seclusion/emergency medication: N/A Justification of Continued Inpatient Treatment: Per MARCK, James, pt. continues to require a safe and supportive environment and is at risk for decompensation if he does not feel safe at time of discharge.
[2019-03-20 08:00] VITALS: BP 97/61
[2019-03-20] MEDS: sertraline 25mg tablet PO SCH (08:14)
[2019-03-20] MEDS: HYDROcodone/acetaminophen 10/325mg tab PO PRN ×2 (08:18→17:23)
[2019-03-20] MEDS: NICOTINE POLACRILEX 2 MG LOZENGE BC PRN ×6 (08:18→20:57)
--- NOTE | 2019-03-20 16:06 | NUR ---
Nursing Progress Note: Legal hold: Voluntary Client on voluntary status Report received from nurse with use of SBAR: DAPHNIE Arguelles Why are they here: Pt. transferred from [facility] after a suicide attempt with a self-inflicted laceration on left forearm. He had used a razor to cut arm down to the tendon, requiring sutures. Pt. has a hx of ETOH use, grief ( of mother, son, and step-father), and trauma. He is homeless with no support system. Pt is depressed, hopeless, and is a high suicide risk. Assessment What has happened this shift: Pt admitted to feeling " a little bit" depressed, denies SI/HI/AH/VH. Pt reported feeling a bit lost in life, not really knowing where he should be. Pt reported not really sleeping well due to the noise from the fans. Pt c/o 7/10 left arm (laceration) pain at 0818, prn [place] 10/325 mg along with a nicotine lozenge given with good effect. Pt showered this morning. After shower, changed dressing left wrist. Bottom portion of laceration is not well approximated, pt reports that he has difficulty remembering not to use/bend his wrist, this seems to be what is contributing to the laceration reopening/not approximating at the distal end. Sutures are intact. Small amount serosanguineous drainage from distal portion of laceration noted. Obtained left wrist support splint for immobilization to facilitate healing/approximation of distal end of laceration. Instructed pt could remove the splint from time to time and undo velcro thumb strap of splint for handwashing. S/I, H/I: Pt denies A/VH: Pt denies Sleep: Pt reported not sleeping very well last night. ADL's: Independent, showered today Group attendance: No group this morning Were meds taken: Yes Any med S/E: None noted or reported Mental Status Exam Appearance: Neat, clean Eye contact: Good Behavior: Pleasant cooperative Speech: clear, soft Mood: Depressed Affect: Calm Thought process: Some rumination Thought Content: ruminates on not knowing where he should be in life Cognition: A&O X4 Insight: Fair Judgment: Fair Interventions PRN's used: [place] 10/325 mg, nicotine lozenges Therapeutic interventions: 1:1 assessment, establishment of rapport, active listening, therapeutic conversation, positive reinforcement, medication administration/education/monitoring, wound care, handwashing education, Q 15 min safety checks. Restraints/seclusion/emergency medication: N/A Justification of Continued Inpatient Treatment: Per James CAHARYA, pt. continues to require a safe and supportive environment and is at risk for decompensation if he does not feel safe at time of discharge, possible discharge to [facility] on Friday.
[2019-03-20 20:00] VITALS: BP 133/86
[2019-03-20] MEDS: traZODone 50mg tablet PO PRN (20:57)
[2019-03-20] MEDS: ibuprofen tablet 400 MG TABLET PO PRN (20:57)
--- NOTE | 2019-03-20 23:45 | NUR ---
Nursing Progress Note: Legal hold: Voluntary Client on voluntary DTS Report received from nurse with use of SBAR: DAPHNIE Aguilera Why are they here: Pt. transferred from [facility] after a suicide attempt with a self-inflicted laceration on left forearm. He had used a razor to cut arm down to the tendon, requiring sutures. Pt. has a hx of ETOH use, grief ( of mother, son, and step-father), and trauma. He is homeless with no support system. Pt is depressed, hopeless, and is a high suicide risk. Assessment What has happened this shift: Pt. sitting in Group Room at the beginning of the shift by himself, interacts intermittently with others and is very helpful on the unit. He requests PRN Nicotine Lozenge, administered with effectiveness. 1:1 completed, pt. continues to deny S/I, however reports ongoing anxiety r/t discharge placement. He states, "I am possibly going to the [facility] or some other residential facility, but I am afraid I will be thrown back out into the jungle out there." Pt. reports that he feels like this is what happened to him after attending the substance abuse rehabilitation program three months ago. This insurance underwriter provided pt. with reassurance that he will not be discharged without safe discharge plans, and he voiced contentment. Pt. requests pain medication at HS, and PRN Motrin administered with effectiveness. Self-inflicted laceration to left FA treatment completed per order: area cleaned, ABT ointment applied, and dressing changed. Small amount of serosanguineous fluid present on old dressing at distal end of wound, sutures remain intact. Pt. encouraged to relax area and limit movement to prevent irritation at area, reports understanding and wears wrist splint when necessary. S/I, H/I: Denies A/VH: Denies Sleep: Pt reported insomnia last night, PRN Trazodone administered, will monitor. ADL's: Independent Group attendance: Pt. reports he attends groups, identifies coping mechanisms as breathing and meditation. Were meds taken: Yes Any med S/E: None Mental Status Exam Appearance: Neat and well dressed Eye contact: Good Behavior: Cooperative, slightly anxious Speech: Soft, WNL Mood: Pleasant Affect: Blunted with animation Thought process: WNL Thought Content: Some phobia regarding discharge Cognition: A&O X4 Insight: Fair Judgment: Fair Interventions PRN's used: Motrin, Nicotine Lozenge X2, and Trazodone Therapeutic interventions: Ensured contract for safety, maintained a safe and supportive environment, observed behaviors and need for intervention, provided active listening, provided reassurance that pt. will not be discharged without safe discharge plans completed dressing change per orders, and maintained Q 15 min safety checks. Restraints/seclusion/emergency medication: N/A Justification of Continued Inpatient Treatment: Per James ACHARYA, pt. continues to require a safe and supportive environment, and is at risk for decompensation if he does have a safe plan for discharge in place.
[2019-03-21] MEDS: sertraline 25mg tablet PO SCH (07:54)
[2019-03-21] MEDS: HYDROcodone/acetaminophen 10/325mg tab PO PRN ×3 (07:54→20:22)
[2019-03-21] MEDS: NICOTINE POLACRILEX 2 MG LOZENGE BC PRN ×9 (07:56→21:15)
[2019-03-21 08:00] VITALS: BP 103/62
--- NOTE | 2019-03-21 14:23 | NUR ---
Nursing Progress Note: Legal hold: Voluntary Client on voluntary status Report received from nurse with use of SBAR: DAPHNIE Arguelles Why are they here: Pt. transferred from [facility] after a suicide attempt with a self-inflicted laceration on left forearm. He had used a razor to cut arm down to the tendon, requiring sutures. Pt. has a hx of ETOH use, grief ( of mother, son, and step-father), and trauma. He is homeless with no support system. Pt is depressed, hopeless, and is a high suicide risk. Assessment What has happened this shift: Pt continues to admit to depression, he frequently requests prn nicotine lozenges for anxiety. Pt has some intermittent suicidal ideation but no plan. 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 Pt did talk about the many times he was in dangerous situations such as 4 wheeling along the top of the edge of a steep precipice and he did not fall and . Pt reflects on how his attempt to end his life by cutting his wrist also was not successful. Pt continues to feel that there must be some reason why he is still here. Pt states he is anxious because "I don't have my chaw." Educated pt on the risks of using chewing tobacco as well as on various smoking cessation methods. Pt stated that he has been chewing since he was 13 years old and he still has good teeth, "See?" shows teeth to this RN. Pt does indicate a desire to cut down on the nicotine but states that it is hard to do so while he is in here. Changed left wrist dressing, laceration measures at 8 cm, sutures intact, laceration is mostly approximated though somewhat raised, especially when in comparison with previous pictures in the chart. Scant serosanguineous drainage noted from distal end, no foul odor, no increase in redness or warmth from yesterday, no increase in pain, pt is afebrile. Continue to monitor for changes and s/sx of infection. Pt does not like to use the wrist support given to him yesterday to promote healing of distal end of incision as it limits his ability to use his left hand, however agrees to try to tolerate it for a couple of hours at a time throughout the day. Foam provided to help cushion laceration/prevent pressure from splint. S/I, H/I: Pt denies HI, intermittent passive SI A/VH: Pt denies Sleep: Pt reported not sleeping well again last night. ADL's: Independent Group attendance: No group this morning Were meds taken: Yes Any med S/E: None noted or reported Mental Status Exam Appearance: Neat, clean Eye contact: Good Behavior: Pleasant cooperative, pt socializes frequently with staff Speech: clear, soft Mood: Depressed, anxious Affect: Anxious Thought process: Some rumination Thought Content: ruminates on feelings of regret for where he is in life and for what he has done to his wrist Cognition: A&O X4 Insight: Fair Judgment: Fair Interventions PRN's used: [place] 10/325 mg, nicotine lozenges Therapeutic interventions: 1:1 assessment, active listening, therapeutic conversation, positive reinforcement, medication administration/education/monitoring, wound care, handwashing education, Q 15 min safety checks. Restraints/seclusion/emergency medication: N/A Justification of Continued Inpatient Treatment: Per James ACHARYA, pt. continues to require a safe and supportive environment and is at risk for decompensation if he does not feel safe at time of discharge, possible discharge to [facility] on Friday.
[2019-03-21] MEDS: ibuprofen tablet 400 MG TABLET PO PRN (16:40)
--- NOTE | 2019-03-21 17:02 | NUR ---
Per Dr Pate's note on 03/13/19, sutures were to be removed in 1 week. Skin appeared as though was starting to become irritated by sutures and wound probably being kept too moist, surrounding skin indurated and slightly macerated. D/c'd sutures, applied steri-strips, covered with nonadherent dressing. Will monitor Q shift and replace steri-strips prn dislodgement until resolved.
[2019-03-21 19:57] VITALS: BP 140/89
--- NOTE | 2019-03-21 22:38 | NUR ---
Nursing Progress Note: Legal hold: Voluntary Client on voluntary status Report received from nurse with use of SBAR: DAPHNIE Aguilera Why are they here: Pt. transferred from [facility] after a suicide attempt with a self-inflicted laceration on left forearm. He had used a razor to cut arm down to the tendon, requiring sutures. Pt. has a hx of ETOH use, grief ( of mother, son, and step-father), and trauma. He is homeless with no support system. Pt is depressed, hopeless, and is a high suicide risk. Assessment What has happened this shift: Pt continues to admit to depression, he frequently requests prn nicotine lozenges for anxiety. Pt has some intermittent suicidal ideation but no plan. 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 Pt states he is anxious because "I don't have my chaw." Educated pt on the risks of using chewing tobacco as well as on various smoking cessation methods. Pt stated that he has been chewing since he was 13 years old. Continue to monitor for changes and s/sx of infection. Pt does not like to use the wrist support given to him yesterday to promote healing of distal end of incision as it limits his ability to use his left hand, however agrees to try to tolerate it for a couple of hours at a time throughout the day. Foam provided to help cushion laceration/prevent pressure from splint. S/I, H/I: Pt denies HI, intermittent passive SI A/VH: Pt denies Sleep: Pt reported not sleeping well again last night. ADL's: Independent Group attendance: No group this morning Were meds taken: Yes Any med S/E: None noted or reported Mental Status Exam Appearance: Neat, clean Eye contact: Good Behavior: Pleasant cooperative, pt socializes frequently with staff Speech: clear, soft Mood: Depressed, anxious Affect: Anxious Thought process: Some rumination Thought Content: ruminates on feelings of regret for where he is in life and for what he has done to his wrist Cognition: A&O X4 Insight: Fair Judgment: Fair Interventions PRN's used: [place] 10/325 mg, nicotine lozenges Therapeutic interventions: 1:1 assessment, active listening, therapeutic conversation, positive reinforcement, medication administration/education/monitoring, wound care, handwashing education, Q 15 min safety checks. Restraints/seclusion/emergency medication: N/A Justification of Continued Inpatient Treatment: Per James ACHARYA, pt. continues to require a safe and supportive environment and is at risk for decompensation if he does not feel safe at time of discharge, possible discharge to [facility] on Friday.
[2019-03-22 07:25] VITALS: BP 113/77
[2019-03-22] MEDS: HYDROcodone/acetaminophen 10/325mg tab PO PRN (08:00)
[2019-03-22] MEDS: sertraline 25mg tablet PO SCH (08:00)
[2019-03-22] MEDS: NICOTINE POLACRILEX 2 MG LOZENGE BC PRN ×6 (08:00→15:03)
[2019-03-22] MEDS ORDERED: NICO-668 BC (13:46)
[2019-03-22] MEDS ORDERED: HYDR-3686 PO (13:46)
[2019-03-22] MEDS ORDERED: TRAZ-251 PO (13:46)
[2019-03-22] MEDS ORDERED: SERT25TA5 PO (13:46)
--- NOTE | 2019-03-22 16:44 | NUR ---
Nursing Progress Note: Legal hold: Voluntary Client on voluntary status Report received from nurse with use of SBAR: Josh ROYAL Why are they here: Pt. transferred from [facility] after a suicide attempt with a self-inflicted laceration on left forearm. He had used a razor to cut arm down to the tendon, requiring sutures. Pt. has a hx of ETOH use, grief ( of mother, son, and step-father), and trauma. He is homeless with no support system. Pt is depressed, hopeless, and is a high suicide risk. Assessment What has happened this shift: Pt reported that he slept better last night, that reading helped. When asked how his depression was today, he stated that he has decided to put his depression on a shelf for now. Pt is wearing 3 wristbands on right wrist, 2 of them from other facilities. Asked if pt would like this RN to cut off the old wristbands, pt declined stating that he likes to keep them on "to remind me where I have been." Pt expresses feeling anxious/nervous about pending discharge. Pt stated he was not hungry this morning and initially refused to eat. He did eventually eat breakfast with some encouragement. Pt showered this morning. He decided to remove his dressing and scrub his steri-strips with a washcloth even though instructed by this RN yesterday to leave the nonadherent dressing on during shower and have nurse remove it afterwards. a few of the steristrips had come loose. Replaced steri-strips, instructed pt not to pull at them or touch the area. Reminded him of his positive nasal MRSA swab. Pt seemed surprised that the MRSA was in his nose, further education provided, good handwashing encouraged. Also encouraged pt to keep his long sleeve shirt down over his left wrist as observed pt frequently playing with steristrips and inspecting laceration. S/I, H/I: Pt denies HI, did not wish to discuss SI today A/VH: Pt denies Sleep: Pt reported sleeping better last night ADL's: Independent Group attendance: Yes Were meds taken: Yes Any med S/E: None noted or reported Mental Status Exam Appearance: Neat, clean Eye contact: Good Behavior: Pleasant cooperative, frequent requests for nicotine lozenges Speech: clear, soft Mood: Anxious Affect: Anxious Thought process: Linear Thought Content: Focused on discharge Cognition: A&O X4 Insight: Fair Judgment: Fair Interventions PRN's used: [place] 10/325 mg @ 0800, nicotine lozenge @ 0800, 0917, 1028, 1218, 1337, and 1503. Therapeutic interventions: 1:1 assessment, active listening, therapeutic conversation, positive reinforcement, medication administration/education/monitoring, wound care, handwashing education, Q 15 min safety checks. Restraints/seclusion/emergency medication: N/A Justification of Continued Inpatient Treatment: Pt continues to be anxious and depressed, he is homeless, plan is for him to discharge today or tomorrow.
--- NOTE | 2019-03-22 17:23 | NUR ---
Discharge Note: Pt discharged at 1555. Ambulated off the unit and out of the hospital by PCT Bryn. Pt handed paper RXs, given 2 bus passes and a map of [place] with directions on how to get to the [facility] and a pharmacy along the way. Discharge instructions reviewed, pt is to follow up with [facility] as well as follow up with status of pending Medi-st[facility]. Pt instructed to leave steri-strips on left wrist laceration until they fall off. Pt instructed to go to the nearest ER if left wrist laceration develops s/sx infection; increased redness warmth, purulent drainage, foul odor, or increased pain. Pt expressed understanding, all belongings returned to pt.
== END 2019-03-22 15:55 | disposition home or self-care (01) | DRG 755 ==
LOC: ADULT MH 03-12 00:15
PROVIDERS: ADMIT Psychiatry & Neurology Psychiatry; ATTEND Psychiatry & Neurology Psychiatry
DX: F43.24 Adjustment disorder with disturbance of conduct (principal); R45.851 Suicidal ideations; S51.819A Laceration without foreign body of unspecified forearm, initial encounter; F41.9 Anxiety disorder, unspecified; R45.87 Impulsiveness; F17.200 Nicotine dependence, unspecified, uncomplicated; X78.9XXA Intentional self-harm by unspecified sharp object, initial encounter; Z81.8 Family history of other mental and behavioral disorders; Y93.89 Activity, other specified; Y92.89 Other specified places as the place of occurrence of the external cause; Y99.8 Other external cause status; Z59.0 Homelessness
CPT/HCPCS: 36415; 80061; 83036; 87081

== ENCOUNTER 2019-03-28 16:37 | Emergency (ER) | payer MEDICAID ==
[~2019-03-28] VITALS: Ht 172.7 cm; Wt 69.9 kg
[~2019-03-28 16:37] MED LIST: HYDR-3686 PO; NICO-668 BC; NO HOME MEDS; SERT25TA5 PO; TRAZ-251 PO
[2019-03-28 17:10] LABS: CLARITY,URINE SLIGHTLY CLOUDY (Clear); COLOR,URINE YELLOW (Yellow); GLUCOSE, URINE NEGATIVE (Neg); KETONES,URINE TRACE mg/dl (Neg); LEUKOCYTE ESTERASE ,URINE NEGATIVE (Neg); NITRITES, URINE NEGATIVE (Neg); OCCULT BLOOD,URINE NEGATIVE (Neg); PROTEIN,URINE TRACE mg/dl (Neg)
[2019-03-28 17:17] LABS: UA COLLECTION TYPE CLN CATCH MIDSTREAM
[2019-03-28 17:20] LABS: BACTERIA,URINE NONE SEEN /HPF (Neg); MUCUS STRANDS FEW /LPF (Neg); RBC,URINE NONE SEEN /HPF (0-2); SQUAMOUS EPITHELIAL CELL,UR NONE SEEN /LPF (FEW); URIC ACID CRYSTALS 3+ /HPF (NEGATIVE); WBC,URINE NONE SEEN /HPF (0-4)
[2019-03-28 17:24] LABS: URINE AMPHETAMINE SCREEN NEGATIVE (Neg); URINE BARBITUATE SCREEN NEGATIVE (Neg); URINE BENZODIAZEPINES SCREEN NEGATIVE (Neg); URINE CANNABINOID SCREEN NEGATIVE (Neg); URINE COCAINE SCREEN NEGATIVE (Neg); URINE METHADONE SCREEN NEGATIVE (Neg); URINE OPIATE SCREEN NEGATIVE (Neg); URINE PHENCYCLIDINE SCREEN NEGATIVE (Neg)
[2019-03-28] MEDS ORDERED: HYDR-3686 PO (17:43)
[2019-03-28] MEDS ORDERED: SERT25TA PO (17:43)
[2019-03-28] MEDS ORDERED: NICO-668 MM (17:43)
[2019-03-28] MEDS ORDERED: TRAZ-219 PO (17:43)
[2019-03-28] MEDS ORDERED: sertraline 50mg tablet PO ONE (17:50)
[2019-03-28] MEDS ORDERED: hydrOXYzine 25 MG tablet PO PRN (18:00)
[2019-03-28] MEDS ORDERED: NICOTINE POLACRILEX 2 MG LOZENGE BC PRN (18:00)
[2019-03-28 18:21] LABS: BASOPHILS # (AUTO) 0.1 X10'3 (0-0.2); EOSINOPHILS # (AUTO) 0.5 X10'3 (0-0.9); EOSINOPHILS % (AUTO) 6.3 % (0-6); HEMOGLOBIN 13.7 g/dl (14.0-17.9); LYMPHOCYTES # (AUTO) 1.6 X10'3 (1.1-4.8); LYMPHOCYTES % (AUTO) 21.7 % (21-51); MEAN CORPUSCULAR HEMOGLOBIN 29.9 PG (27.0-31.0); MEAN CORPUSCULAR HGB CONC 34.2 g/dL (33.0-36.5); MEAN CORPUSCULAR VOLUME 87.4 FL (78-98); MEAN PLATELET VOLUME 7.9 FL (7.4-10.4); MONOCYTES # (AUTO) 0.5 X10'3 (0-0.9); MONOCYTES % (AUTO) 7.4 % (2-12); NEUTROPHILS # (AUTO) 4.6 X10'3 (1.8-7.7); NEUTROPHILS % (AUTO) 63.6 % (42-75); PLATELET COUNT 257 X10'3 (140-440); RED BLOOD COUNT 4.57 X10'6 (4.70-6.10); RED CELL DISTRIBUTION WIDTH 14.3 % (11.5-14.5); WHITE BLOOD COUNT 7.2 X10'3 (4.5-11.0)
--- NOTE | 2019-03-28 18:30 | NUR ---
Assumed care of patient from DAPHNIE Bejarano. The patient is awake and laying in bed with eyes open. Denies needs.
[2019-03-28 18:36] LABS: ALANINE AMINOTRANSFERASE 32 U/L (12-78); ALBUMIN 3.7 G/DL (3.4-5.0); ALBUMIN/GLOBULIN RATIO 1.2 (1.1-1.5); ALKALINE PHOSPHATASE 73 IU/L (46-116); ANION GAP 7 (8-16); ASPARTATE AMINO TRANSFERASE 26 U/L (10-37); BILIRUBIN,TOTAL 0.3 MG/DL (0.1-1.0); BLOOD UREA NITROGEN 16 MG/DL (7-18); BUN/CREATININE RATIO 18.8 (5.4-32.0); CALCIUM 8.3 MG/DL (8.5-10.1); CHLORIDE 108 MMOL/L (99-107); CREATININE 0.85 MG/DL (0.60-1.10); GLUCOSE 93 MG/DL (70-104); POTASSIUM 4.2 MMOL/L (3.5-5.1); SODIUM 143 MMOL/L (135-145); TOTAL CARBON DIOXIDE 27.8 MMOL/L (24-32); TOTAL PROTEIN 6.9 G/DL (6.4-8.2); eGFR > 90 ML/MIN
[2019-03-28 18:47] LABS: ETHANOL < 0.010 GM/DL (0.0-0.010)
--- NOTE | 2019-03-28 20:12 | NUR ---
The patient is sleeping on his left side. Breathing is unlabored. No s/s of distress.
[2019-03-28] MEDS: traZODone 50mg tablet PO SCH (20:23)
--- NOTE | 2019-03-28 21:14 | NUR ---
Packet sent to [facility]. Confirmed receipt of packet with Blaire REBOLLEDO office.
--- NOTE | 2019-03-28 21:32 | NUR ---
The patient is sleeping on his left side wityh covers up his chin. Breathing is unlabored. There are no s/s of distress.
--- NOTE | 2019-03-29 00:30 | NUR ---
The patient is sleeping with no s/s of distress.
--- NOTE | 2019-03-29 02:34 | NUR ---
The patient is sleeping on his left side. Breathing is unlabored. No s/s of distress.
--- NOTE | 2019-03-29 04:21 | NUR ---
The patient continues to sleep.
--- NOTE | 2019-03-29 07:00 | NUR ---
PT IS RESTING NO CONCERNS AT THIS TIME
[2019-03-29] MEDS ORDERED: sertraline 25mg tablet PO SCH (08:00)
--- NOTE | 2019-03-29 08:00 | NUR ---
PT WOKE UP TO EAT BREAKFAST AND TAKE MEDS
--- NOTE | 2019-03-29 09:00 | NUR ---
PT AWAKE AND EATING BREAKFAST
--- NOTE | 2019-03-29 11:00 | NUR ---
PT SLEEPING NO CHANGES
--- NOTE | 2019-03-29 12:00 | NUR ---
PT WOKE UP TO EATING LUNCH.
--- NOTE | 2019-03-29 13:00 | NUR ---
REPORT GIVEN OVER THE PHONE TO [facility]
--- NOTE | 2019-03-29 14:00 | NUR ---
PT RESTING IN BED. LAYING IN BED ON HIS BACK
--- NOTE | 2019-03-29 15:00 | NUR ---
NO CHANGES OR CONCERNS IN PATIENT CONDITION. HE CONTINUES TO SLEEP MOST OF THE DAY
--- NOTE | 2019-03-29 16:03 | NUR ---
PT TALKING WITH STAFF.
--- NOTE | 2019-03-29 18:00 | NUR ---
PT SLEEPING. REPORT GIVEN TO ENRIQUE
--- NOTE | 2019-03-29 18:30 | NUR ---
Patient is in bed, he is resting quietly. Patient states he has moderate depression. Patient states he feels suicidal but has no plan. Patient speaks quietly. 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 Patient is cooperative qith staff.
--- NOTE | 2019-03-29 20:00 | NUR ---
Patient has eaten dinner. He is resting quietly. Plan is to move patient to [facility]. Patient is medication compliant. Q 15 minute rounding is being done for patient safety. Patient is in view from the nursing station.
[2019-03-29] MEDS: traZODone 50mg tablet PO SCH (21:05)
--- NOTE | 2019-03-29 22:10 | NUR ---
Patient is being transfered soon to Behavioral Health. Belongings are being retrieved.
[2019-03-29 22:22] VITALS: BP 114/55
== END 2019-03-29 22:30 ==
LOC: ER 16:38
DX: F32.9 Major depressive disorder, single episode, unspecified (principal); F41.9 Anxiety disorder, unspecified; Z59.0 Homelessness; Z79.899 Other long term (current) drug therapy
CPT/HCPCS: 36415; 80053; 80305; 80320; 81001; 84443; 85025; 99285; Z7610

== ENCOUNTER 2019-03-29 21:45 | Inpatient (IN) | payer MEDICAID ==
[~2019-03-29] VITALS: Ht 180.3 cm; Wt 74.7 kg
[~2019-03-29 21:45] MED LIST changes: -NICO-668 BC; +NICO-668 MM; -NO HOME MEDS; +SERT25TA PO; -SERT25TA5 PO; +TRAZ-219 PO; -TRAZ-251 PO
[2019-03-29] MEDS ORDERED: loperamide 2mg capsule PO PRN (22:35)
[2019-03-29] MEDS ORDERED: acetaminophen 325mg tablet PO PRN ×2 (22:35)
[2019-03-29] MEDS ORDERED: mag hydrox/Alum hydrox/simeth 30ml oral suspension PO PRN (22:35)
[2019-03-29] MEDS ORDERED: magnesium hydroxide 30ml (MOM) UD suspension PO PRN (22:35)
--- NOTE | 2019-03-30 01:07 | NUR ---
ADMIT NOTE: The patient is admitted to [facility] from the ER at 2355. He is a recent patient that was discharged on 03/22 after a SA where he tried to slice his wrist, "But it took too long." He reports that he was discharged to the [facility] where he spent 2 days. During that 2 days, he says that he saw many things that were too intimidating for him, so he decided to leave. He says that he walked and ended up at the [facility], where he found a place to hide out. "I had to get away from everyone." He spent 4 days hidden in his space. During this time his depression and anxiety were increasing and he became suicidal again, so came back to the ER. He was brought onto the unit, wanded, then given the opportunity to shower. His skin is intact, except for a scar to his right forearm from his previous SA. He was placed in green scrubs and oriented to the unit and his room.
[2019-03-30 08:03] VITALS: BP 120/70
[2019-03-30] MEDS: sertraline 25mg tablet PO SCH (08:12)
[2019-03-30] MEDS: hydrOXYzine 25 MG tablet PO PRN (15:29)
--- NOTE | 2019-03-30 16:00 | NUR ---
Nursing Progress Note: Legal hold:5150 Client on voluntary/involuntary status for DTS Report received from nurse with use of Juanita LOUIS RN Why are they here: Pt recently discharged on 03/22 after a SA where he tried to slice his wrist, "But it took too long." He reports that he was discharged to the [facility] where he spent 2 days. During that 2 days, he says that he saw many things that were too intimidating for him, so he decided to leave. He says that he walked and ended up at the [facility], where he found a place to hide out. "I had to get away from everyone." He spent 4 days hidden in his space. During this time his depression and anxiety were increasing and he became suicidal again, so came back to the ER. Assessment What has happened this shift: Pt got up for meals then went immediately back to bed, slept for most of the day. Had to wake pt up to perform assessment. Immediately after awakening, pt asked this nurse if they had figured out a way to get him a bus ticket back (to [place].) When asked about his depression, pt made gestures of a nose dive with his hand and stated, "it's down." When asked about SI, pt stated that he is having constant suicidal thoughts, "I have a circus of ways in my head that I would do it, starting with this," pt pointed right hand towards left wrist with fresh scar from pt's last SA. Asked pt why he didn't get his Zoloft filled after being discharged from here last time. Pt made a gesture with his finger, rubbing them together to indicate money. Pt stated that he went to the [place] and spiraled, he said the 2nd day there he sat in one spot for 12 hours until bedtime and then decided to leave. Pt stated that he went and found a spot where he could be alone. Pt stated that he felt guilty about coming here for resources when there were already so many people her without them. Pt stated that "you just can't trust anyone." Pt had been using wadded up pieces of his napkin for ear plugs. Provided pt with actual ear plugs. Pt requested something for anxiety, pointed out that he had been sleeping nearly all day and this RN had to wake him up for assessment. Pt stated that he couldn't stop his thoughts. Medicated with prn Atarax 50 mg at 1529. S/I, H/I: Pt denies HI, endorsing SI with plan to cut his wrists A/VH: Pt denies Sleep: Pt slept nearly all day, up for meals only. ADL's: Independent Group attendance: Pt declined Were meds taken: yes, Zoloft Any med S/E: None reported Mental Status Exam Appearance: Disheveled, malodorous Eye contact: Fair Behavior: isolative to self, slept most of the day Speech: Clear, audible, pt is hard of hearing Mood:Depressed, anxious Affect: fatigued, depressed Thought process: Linear, perseverative Thought Content: Pt is thinking he should leave [facility], wants a bus ticket back to [place] Cognition: A/O X 4 Insight: Fair Judgment: Poor Interventions PRN's used: Atarax 50 mg Therapeutic interventions: 1:1 assessment, active listening, therapeutic conversation, medication administration/education/monitoring, Q 15 min safety checks. Restraints/seclusion/emergency medication: N/A Justification of Continued Inpatient Treatment: Pt is depressed and endorsing SI with a plan , he recently attempted suicide by cutting his wrist. He is hopeless and homeless.
[2019-03-30 20:00] VITALS: BP 103/61
[2019-03-30] MEDS: traZODone 50mg tablet PO SCH (20:31)
--- NOTE | 2019-03-31 01:38 | NUR ---
Nursing Progress Note: Legal hold:5150 Client on involuntary status for DTS Report received from nurse with use of Johanne LOUIS RN Why are they here: Pt recently discharged on 03/22 after a SA where he tried to slice his wrist, "But it took too long." He reports that he was discharged to the [facility] where he spent 2 days. During that 2 days, he says that he saw many things that were too intimidating for him, so he decided to leave. He says that he walked and ended up at the [facility], where he found a place to hide out. "I had to get away from everyone." He spent 4 days hidden in his space. During this time his depression and anxiety were increasing and he became suicidal again, so came back to the ER. Assessment: What has happened this shift: The patient was found in his bed for 1:1 assessment. He reports that he did nothing today but sleep or read. "I have about 5 days of sleep to catch up on." The patient spent the entire night in bed. He believes the hospital should provide him transportation to [place], where he thinks someone might let him stay. The patient reports a plan to continue where his prior SA took place on his left arm. He did not get up for snack time. He took his HS meds and went back to sleep. S/I, H/I: SI, "I'll finish where I left off." A/VH: Denies Sleep: Slept all shift. ADL's: Independent Group attendance: No group at night Were meds taken: Yes Any med S/E: None reported or observed. Mental Status Exam: Appearance: Disheveled, malodorous, greasy hair, unshaved Eye contact: Fair Behavior: Isolated all shift Speech: Clear, Pt. hearing is impaired. Mood: Depressed. Affect: Constricted, fatigued Thought process: Linear, perseverative Thought Content: Patient expects a bus ticket to [place]. Cognition: A/O X 4 Insight: Fair Judgment: Poor Interventions: PRN's used: None Therapeutic interventions: 1:1 assessment, active listening, therapeutic conversation, medication administration/education/monitoring, Q 15 min safety checks. Restraints/seclusion/emergency medication: N/A Justification of Continued Inpatient Treatment: Pt is depressed and endorsing SI with a plan , he recently attempted suicide by cutting his wrist. He is hopeless and homeless.
[2019-03-31 07:51] VITALS: BP 109/66
[2019-03-31] MEDS: hydrOXYzine 25 MG tablet PO PRN ×2 (08:15→20:49)
[2019-03-31] MEDS: sertraline 25mg tablet PO SCH (08:15)
--- NOTE | 2019-03-31 13:02 | NUR ---
Nursing Progress Note: Legal hold:5150 Client on voluntary/involuntary status for DTS Report received from nurse with use of Juanita LOUIS RN Why are they here: Pt recently discharged on 03/22 after a SA where he tried to slice his wrist, "But it took too long." He reports that he was discharged to the [facility] where he spent 2 days. During that 2 days, he says that he saw many things that were too intimidating for him, so he decided to leave. He says that he walked and ended up at the [facility], where he found a place to hide out. "I had to get away from everyone." He spent 4 days hidden in his space. During this time his depression and anxiety were increasing and he became suicidal again, so came back to the ER. Assessment What has happened this shift: Pt states his depression is the same today as it was yesterday. Pt initially stated that it was too early to have suicidal thoughts but then said that while he was in the dining room at breakfast today he had thoughts of cutting his wrist or walking into traffic due to his current life circumstances. Pt took prn Atarax with morning meds for c/o increased anxiety. Pt appears less fatigued today and more receptive to conversation. Pt still feels that returning to [place] is his best option. He stated, "I've heard people say this place is dying" referring to the city of [place]. Pt went on to say that it was bad in [place] but worse here as far as the dangerous element on the streets. Pt stated, "they're serious enough to go and whack you just to survive." Pt described his perception that the [place] is over run with people who do not have resources. Pt stated, "I imagine people are coming here from [employer] and [employer]," indicating that there was a gang-like atmosphere here. Pt stated that it wasn't as bad in [place] and feels that his best bet is to return to [place] "where I have more resources, I know my way around, I can go back to work." Pt stated that he is receptive to a sober living facility here but doesn't know what he would do from there as living in [place] is no longer appealing to him. Pt is hopeful that Dayron Morgan will assist him with acquiring a bus ticket back to [place]. S/I, H/I: Pt denies HI, endorsing SI with plan to cut his wrists or walk into traffic A/VH: Pt denies Sleep: Pt slept 8.5 hours per noc shift report ADL's: Independent Group attendance: No Were meds taken: Yes Any med S/E: None reported Mental Status Exam Appearance: Disheveled, appears more rested and alert than yesterday Eye contact: Good Behavior: Pleasant, cooperative, isolative to self Speech: Clear, audible, pt is hard of hearing Mood:Depressed, anxious Affect: Depressed Thought process: perseverative Thought Content: Perseverates on hopelessness of situation, no longer wants to stay in [place] Cognition: A/O X 4 Insight: Fair Judgment: Fair Interventions PRN's used: Atarax 50 mg Therapeutic interventions: 1:1 assessment, active listening, therapeutic conversation, medication administration/education/monitoring, Q 15 min safety checks. Restraints/seclusion/emergency medication: N/A Justification of Continued Inpatient Treatment: Pt is depressed and endorsing SI with a plan , he recently attempted suicide by cutting his wrist. He is homeless.
[2019-03-31] MEDS: NICOTINE POLACRILEX 2 MG LOZENGE BC PRN ×2 (16:26→19:06)
[2019-03-31 20:00] VITALS: BP 129/73
[2019-03-31] MEDS: traZODone 50mg tablet PO SCH (20:49)
--- NOTE | 2019-04-01 02:50 | NUR ---
Nursing Progress Note: Legal hold: 5150 Client on involuntary status for DTS Report received from nurse with use of SBAR: DAPHNIE Whiting Why are they here: Pt recently discharged on 03/22 after a SA where he tried to slice his wrist, "But it took too long." He reports that he was discharged to the [facility] where he spent 2 days. During that 2 days, he says that he saw many things that were too intimidating for him, so he decided to leave. He says that he walked and ended up at the [facility], where he found a place to hide out. "I had to get away from everyone." He spent 4 days hidden in his space. During this time his depression and anxiety were increasing and he became suicidal again, so came back to the ER. Assessment What has happened this shift: Pt. laying in bed reading at the beginning of this shift, he appropriately greets this music writer and requests PRN Nicotine lozenge. Pt. up later watching TV in the Recreation Room and interacting minimally with others. 1:1 completed, he presents as cooperative, anxious, withdrawn, and fatigued. Pt. endorses, "Suicidal thoughts that come and go," with a plan to cut his wrists or jump in front of a car. He reports ongoing depression and anxiety, PRN Atrax administered with effectiveness. Pt. states, "I'm an empathic so the [place] was hard for me, I could feel the negativity." He also admits that being in social settings contribute to his anxiety, and describes his living situation in [place]. Pt. reports that he lived alone at an outdoors camp, on and off for six years. However, he admits that the last time he attended rehab, he came back and his camp had been demolished. The patient identifies being in nature as his, "Comfort zone." S/I, H/I: Pt. endorses, "Suicidal thoughts that come and go," with a plan to cut his wrists or jump in front of a car. A/VH: N/A Sleep: Pt. reports fatigue, scheduled Trazodone administered at HS with effectiveness. Pt. educated to notify staff if he experiences any insomnia, and he voices understanding. ADL's: Requires encouragement Group attendance: Pt. reports he only attended one group today r/t fatigue. This music writer encouraged him to try and attend groups tomorrow, and pt. voiced understanding. Were meds taken: Yes Any med S/E: None Mental Status Exam Appearance: Neat and appropriately dressed Eye contact: Good Behavior: Cooperative, anxious, withdrawn, and fatigued Speech: Soft Mood: Pleasant with anxiety Affect: Blunted Thought process: WNL Thought Content: Phobias r/t social settings and discharge Cognition: A&O X4 Insight: Fair Judgment: Poor Interventions PRN's used: Nicotine Lozenge and Atrax Therapeutic interventions: Ensured contract for safety, maintained a safe and therapeutic environment, monitored behavior and need for intervention, educated pt. to notify staff if he experiences any insomnia, encouraged independent performance of ADLs and group attendance, and maintained Q 15 min safety checks. Restraints/seclusion/emergency medication: N/A Justification of Continued Inpatient Treatment: Pt. requires interruption of current crisis, medication adjustments, and a safe and supportive environment.
[2019-04-01] MEDS: sertraline 25mg tablet PO SCH (07:54)
[2019-04-01] MEDS: NICOTINE POLACRILEX 2 MG LOZENGE BC PRN ×8 (07:57→22:27)
[2019-04-01 08:00] VITALS: BP 112/60
[2019-04-01] MEDS: hydrOXYzine 25 MG tablet PO PRN ×2 (09:02→20:58)
[2019-04-01] MEDS ORDERED: tuberculin, purif. prot. deriv. 5 units/0.1ml ID ONE (11:15)
--- NOTE | 2019-04-01 12:13 | NUR ---
DISCHARGE PLANNING: Faxed [facility] referral to [place] office
--- NOTE | 2019-04-01 15:21 | NUR ---
DISCHARGE PLANNING: Dre from [facility] called and said he will come see client within the next hour
--- NOTE | 2019-04-01 17:33 | NUR ---
Nursing Progress Note: VASILIY Legal hold: 5150 Client on involuntary status for DTS Report received from nurse with use of SBAR: Juanita, RN Why are they here: Pt recently discharged on 03/22 after a SA where he tried to slice his wrist, "But it took too long." He reports that he was discharged to the [facility] where he spent 2 days. During that 2 days, he says that he saw many things that were too intimidating for him, so he decided to leave. He says that he walked and ended up at the [facility], where he found a place to hide out. "I had to get away from everyone." He spent 4 days hidden in his space. During this time his depression and anxiety were increasing and he became suicidal again, so came back to the ER. Assessment What has happened this shift: Pt. is found walking in the halls at change of shift. He is pleasant and very talkative today. He speaks of feeling "stuck like a monkey" and wanting to go back to [place]. He feels like a monkey wanting to go to [place] because he feels comfortable there, not because its the best place for him to be. Pt. up later watching TV in the Recreation Room and interacting with peers and staff. 1:1 completed, he presents as cooperative. Pt. endorses, "Suicidal ideas come and go but they get worse when I think about having to be out on the street with no tent or anything." He reports ongoing depression and anxiety, PRN Atrax administered with effectiveness. Pt. reports that he lived alone at an outdoors camp, on and off for six years. S/I, H/I: Pt. endorses S/I A/VH: N/A Sleep: 7hrs NOC ADL's: Pt well dressed and has good hygiene Group attendance: Yes Were meds taken: Yes Any med S/E: None Mental Status Exam Appearance: Neat and appropriately dressed Eye contact: Direct Behavior: Cooperative, perseverating Speech: Soft, [place] Mood: Pleasant with anxiety Affect: Calm Thought process: WNL Thought Content: [place] & discharge Cognition: A&O X4 Insight: Fair Judgment: Poor Interventions PRN's used: Nicotine Lozenge X2, Atarax X1 Therapeutic interventions: Ensured contract for safety, maintained a safe and therapeutic environment, monitored behavior and need for intervention, educated pt. to notify staff if he experiences any insomnia, encouraged independent performance of ADLs and group attendance, and maintained Q 15 min safety checks. Restraints/seclusion/emergency medication: N/A Justification of Continued Inpatient Treatment: Pt. requires interruption of current crisis, medication adjustments, and a safe and supportive environment.
[2019-04-01 20:00] VITALS: BP 127/86
[2019-04-01] MEDS: traZODone 50mg tablet PO SCH (20:55)
[2019-04-01] MEDS ORDERED: temazepam 15mg capsule PO ONE (22:20)
--- NOTE | 2019-04-02 01:35 | NUR ---
Nursing Progress Note: Legal hold: Voluntary Client on voluntary status for DTS Report received from nurse with use of SBAR: DAPHNIE Aguilera Why are they here: Pt recently discharged on 03/22 after a SA where he tried to slice his wrist, "But it took too long." He reports that he was discharged to the [facility] where he spent 2 days. During that 2 days, he says that he saw many things that were too intimidating for him, so he decided to leave. He says that he walked and ended up at the [facility], where he found a place to hide out. "I had to get away from everyone." He spent 4 days hidden in his space. During this time his depression and anxiety were increasing and he became suicidal again, so came back to the ER. Assessment What has happened this shift: Pt. up in the Recreation Room interacting appropriately with others at the beginning of the shift, he does not immediately request a Nicotine Lozenge or anxiolytic as he has previously done upon seeing this specification writer. He later attends snack, and afterwards appears more anxious/restless and requests PRN Nicotine and Atrax, administered with effectiveness. 1:1 completed, pt. continues to endorse S/I, states, "I had about six thoughts about suicide today, but no specific plan." He reports ongoing anxiety, but reports he is working on distracting himself from his own thoughts. When this specification writer questioned him regarding A/V/TOWNSEND, pt. stated, "I don't think so, but sometimes I can hear my own thoughts, but they are not like voices." S/I, H/I: Passive S/I, no specific plan A/VH: Denies Sleep: Pt. reports that he did not sleep well last night r/t the alarm from his roommates CPAP, he later reported insomnia at HS. Obtained new order for Temazepam 15mg MRX1, and administered with effectiveness. ADL's: Requires encouragement Group attendance: Pt. reports he attended groups today, but sat in the back and did not participate Were meds taken: Yes Any med S/E: None Mental Status Exam Appearance: Neat and appropriately dressed Eye contact: Good Behavior: Cooperative, anxious, and restless Speech: Soft Mood: Pleasant with anxiety Affect: Blunted Thought process: WNL Thought Content: Phobias r/t the future and discharge Cognition: A&O X4 Insight: Fair Judgment: Poor Interventions PRN's used: Nicotine Lozenge, Atrax, and Temazepam X1 Therapeutic interventions: Ensured contract for safety, maintained a safe and therapeutic environment, monitored behavior and need for intervention, obtained new order for Temazepam 15mg MRX1 per insomnia, encouraged independent performance of ADLs and group attendance, and maintained Q 15 min safety checks. Restraints/seclusion/emergency medication: N/A Justification of Continued Inpatient Treatment: Pt. continues to voice S/I and requires stabilization, medication adjustments, and a safe and supportive environment.
[2019-04-02 07:00] VITALS: BP 103/56
[2019-04-02] MEDS: NICOTINE POLACRILEX 2 MG LOZENGE BC PRN ×6 (07:30→21:17)
[2019-04-02] MEDS ORDERED: sertraline 50mg tablet PO SCH (08:00)
--- NOTE | 2019-04-02 11:49 | NUR ---
Initial: Pt admit with depression currently on a vegetarian diet documented with 75-100% PO intake meeting nutrient needs. LBM 03/30 with MoM PRN. No edema or wounds. No nutrition diagnosis at this time. Will continue to follow. Recommendations: 1) Continue regular diet 2) Bowel care PRN 3) Weekly wt Addendum: 04/02/19 at [address] Amended: Links added.
--- NOTE | 2019-04-02 14:18 | NUR ---
DISCHARGE NOTE: Accepted to [facility] for next week
--- NOTE | 2019-04-02 16:01 | NUR ---
Nursing Progress Note: VASILIY Legal hold: 5150 Client on involuntary status for DTS Report received from nurse with use of SBAR: Janae Dan RN Why are they here: Pt recently discharged on 03/22 after a SA where he tried to slice his wrist, "But it took too long." He reports that he was discharged to the [facility] where he spent 2 days. During that 2 days, he says that he saw many things that were too intimidating for him, so he decided to leave. He says that he walked and ended up at the [facility], where he found a place to hide out. "I had to get away from everyone." He spent 4 days hidden in his space. During this time his depression and anxiety were increasing and he became suicidal again, so came back to the ER. Assessment What has happened this shift: Pt. is found walking in the halls at change of shift. He is pleasant this morning. Pt reports that he slept very well last night but that he doesnt remember taking off his shirt which is distrubing to him. He reports he feels like his medications are working increasingly better and he states he is concerned about people not liking him and that he can now feel it like sand paper. Pt. Engaged in group today and was found socializing with peers and staff. 1:1 completed, he presents as cooperative. Pt. endorses, "Suicidal ideas are less today. He reports ongoing depression and anxiety for some time now. PRN Nicotine X3. Pt reports he plans on working on having more gratitude in his life. S/I, H/I: Pt. endorses minimal S/I today A/VH: N/A Sleep: 6hrs NOC ADL's: Pt well dressed and has good hygiene Group attendance: Yes Were meds taken: Yes Any med S/E: None Mental Status Exam Appearance: Neat and appropriately dressed Eye contact: Direct Behavior: Cooperative, perseverating Speech: Soft, [place] Mood: Pleasant with some anxiety Affect: Calm Thought process: WNL Thought Content: mostly his life and addictive personality Cognition: A&O X4 Insight: Fair Judgment: Poor Interventions PRN's used: Nicotine Lozenge X3 Therapeutic interventions: Ensured contract for safety, maintained a safe and therapeutic environment, monitored behavior and need for intervention, educated pt. to notify staff if he experiences any insomnia, encouraged independent performance of ADLs and group attendance, and maintained Q 15 min safety checks. Restraints/seclusion/emergency medication: N/A Justification of Continued Inpatient Treatment: Pt. requires interruption of current crisis, medication adjustments, and a safe and supportive environment.
--- NOTE | 2019-04-02 16:39 | NUR ---
DISCHARGE PLANNING:Patient can dc to [facility] any day next week as long as he discharges by 1400, let [place] know.
[2019-04-02 20:00] VITALS: BP 122/71
[2019-04-02] MEDS: hydrOXYzine 25 MG tablet PO PRN (21:17)
[2019-04-02] MEDS: traZODone 50mg tablet PO SCH (21:17)
--- NOTE | 2019-04-02 23:53 | NUR ---
Nursing Progress Note: Legal hold: Voluntary Client on voluntary status for DTS Report received from nurse with use of SBAR: DAPHNIE Aguilera Why are they here: Pt recently discharged on 03/22 after a SA where he tried to slice his wrist, "But it took too long." He reports that he was discharged to the [facility] where he spent 2 days. During that 2 days, he says that he saw many things that were too intimidating for him, so he decided to leave. He says that he walked and ended up at the [facility], where he found a place to hide out. "I had to get away from everyone." He spent 4 days hidden in his space. During this time his depression and anxiety were increasing and he became suicidal again, so came back to the ER. Assessment What has happened this shift: Pt. up in the Recreation Room interacting appropriately with others at the beginning of the shift, he requests PRN Nicotine Lozenge, administered with effectiveness. He greets this marketing underwriter and animatedly states, "I fell like the increased dose in my depression medication is working!" Pt. later attends snack, and is observed to be appropriately interacting with others throughout the shift. 1:1 completed, pt. denies any S/I this shift, however reports that he did have some thoughts earlier today. 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 Pt. talks in a hyperverbal manner for a long while before retreating to bed about his plans for the future, his love to write and play music, and the regrets of his past. He appears to have good insight, and is able to redirect his thoughts when needed . PRN Atrax requested at and administered with effectiveness. S/I, H/I: Passive S/I at times, no specific plan A/VH: Denies Sleep: Pt. reports that he slept well last night after taking one-time order for Temazepam. He is encouraged by this marketing underwriter to try and relax and listen to music at HS in order to help him fall asleep after taking scheduled Trazodone. Pt. reports understanding and will notify staff if he continues to experience insomnia. ADL's: Independent Group attendance: Pt. reports he attended groups today, he is able to identify coping mechanisms such as reminding himself to breathe, refocus his thoughts, and move forward from the past. Were meds taken: Yes Any med S/E: None Mental Status Exam Appearance: Neat and appropriately dressed Eye contact: Good Behavior: Cooperative, anxious, and restless Speech: Soft, hyperverbal at times but is able to identify this and redirect himself Mood: Pleasant with anxiety Affect: Animated Thought process: WNL Thought Content: Phobias r/t the future and discharge Cognition: A&O X4 Insight: Fair Judgment: Fair Interventions PRN's used: Nicotine Lozenge and Atrax Therapeutic interventions: Ensured contract for safety, maintained a safe and therapeutic environment, monitored behavior and need for intervention, encouraged relaxation at HS and educated pt. to notify staff if he experiences insomnia , encouraged independent performance of ADLs, and maintained Q 15 min safety checks. Restraints/seclusion/emergency medication: N/A Justification of Continued Inpatient Treatment: Pt. continues to voice S/I at times and requires further stabilization, medication adjustments, and a safe and supportive environment. He is accepted at [facility] and will be going there sometime next week.
[2019-04-03] MEDS: NICOTINE POLACRILEX 2 MG LOZENGE BC PRN ×6 (07:42→21:32)
[2019-04-03] MEDS: sertraline 50mg tablet PO SCH (07:42)
[2019-04-03 08:29] VITALS: BP 106/57
--- NOTE | 2019-04-03 15:24 | NUR ---
Nursing Progress Note: VASILIY Legal hold: VOL Client on involuntary status for DTS Report received from nurse with use of SBAR: Janae Dan RN Why are they here: Pt recently discharged on 03/22 after a SA where he tried to slice his wrist, "But it took too long." He reports that he was discharged to the [facility] where he spent 2 days. During that 2 days, he says that he saw many things that were too intimidating for him, so he decided to leave. He says that he walked and ended up at the [facility], where he found a place to hide out. "I had to get away from everyone." He spent 4 days hidden in his space. During this time his depression and anxiety were increasing and he became suicidal again, so came back to the ER. Assessment What has happened this shift: Pt. is found walking in the halls at change of shift. He is pleasant this morning. Pt reports that he slept very well last night. He reports he feels like his medications are working and he is awaiting his discharge. Pt. Engaged in group today and was found socializing with peers and staff. He played guitar for a few hours today which he was happy about. 1:1 completed, he presents as cooperative. Pt. Endorses ongoing depression and anxiety. PRN Nicotine was given Q2hrs, pt fixated on this today. S/I, H/I: Pt. endorses minimal S/I today A/VH: N/A Sleep: 5.75hrs NOC ADL's: Pt well dressed and has good hygiene Group attendance: Yes Were meds taken: Yes Any med S/E: None Mental Status Exam Appearance: Neat and appropriately dressed Eye contact: Direct Behavior: Cooperative, perseverating on nicotine qi Speech: Soft, [place] Mood: Pleasant Affect: upbeat Thought process: WNL Thought Content: playing guitar and finding the right songs Cognition: A&O X4 Insight: Fair Judgment: Poor Interventions PRN's used: Nicotine Lozenge X3 Therapeutic interventions: Ensured contract for safety, maintained a safe and therapeutic environment, monitored behavior and need for intervention, educated pt. to notify staff if he experiences any insomnia, encouraged independent performance of ADLs and group attendance, and maintained Q 15 min safety checks. Restraints/seclusion/emergency medication: N/A Justification of Continued Inpatient Treatment: Pt. requires interruption of current crisis, medication adjustments, and a safe and supportive environment.
[2019-04-03 19:27] VITALS: BP 118/74
[2019-04-03] MEDS: traZODone 50mg tablet PO SCH (21:17)
--- NOTE | 2019-04-04 00:56 | NUR ---
Nursing Progress Note: Legal hold: VOL Client on involuntary status for DTS Report received from nurse with use of SBAR: Janae Dan RN Why are they here: Pt recently discharged on 03/22 after a SA where he tried to slice his wrist, "But it took too long." He reports that he was discharged to the [facility] where he spent 2 days. During that 2 days, he says that he saw many things that were too intimidating for him, so he decided to leave. He says that he walked and ended up at the [facility], where he found a place to hide out. "I had to get away from everyone." He spent 4 days hidden in his space. During this time his depression and anxiety were increasing and he became suicidal again, so came back to the ER. Assessment What has happened this shift: Pt up in rec room at start of shift. Asked immediately when Nicotine lozenge was due. Pt pleasant and cooperative talked at length about [facility] and ending up staying in the abandoned hotel. Pt conversation is somewhat disorganized and he is unable to maintain chronological order. Pt is hoping to be discharged to the [facility] this time. When asked where he would like to go after that he said he would just like to live somewhere he felt safe. S/I, H/I: Pt. endorses minimal S/I today A/VH: N/A Sleep: asleep at this time ADL's: Pt well dressed and has good hygiene Group attendance: Yes Were meds taken: Yes Any med S/E: None Mental Status Exam Appearance: Neat and appropriately dressed Eye contact: Direct Behavior: Cooperative, perseverating on nicotine qi Speech: Soft, [place] Mood: Pleasant Affect: upbeat Thought process: WNL Thought Content: playing guitar and finding the right songs Cognition: A&O X4 Insight: Fair Judgment: Poor Interventions PRN's used: Nicotine Lozenge X2 Therapeutic interventions: Ensured contract for safety, maintained a safe and therapeutic environment, monitored behavior and need for intervention, educated pt. to notify staff if he experiences any insomnia, encouraged independent performance of ADLs and group attendance, and maintained Q 15 min safety checks. Restraints/seclusion/emergency medication: N/A Justification of Continued Inpatient Treatment: Pt. requires interruption of current crisis, medication adjustments, and a safe and supportive environment.
[2019-04-04] MEDS: sertraline 50mg tablet PO SCH (07:35)
[2019-04-04] MEDS: hydrOXYzine 25 MG tablet PO PRN (07:35)
[2019-04-04] MEDS: NICOTINE POLACRILEX 2 MG LOZENGE BC PRN ×6 (07:35→20:03)
[2019-04-04 08:26] VITALS: BP 101/62
--- NOTE | 2019-04-04 16:23 | NUR ---
Nursing Progress Note: Legal hold: VOL Client on involuntary status for DTS Report received from nurse, Bijan RN with use of SBAR Why are they here: Pt recently discharged on 03/22 after a SA where he tried to slice his wrist, "But it took too long." He reports that he was discharged to the [facility] where he spent 2 days. During that 2 days, he says that he saw many things that were too intimidating for him, so he decided to leave. He says that he walked and ended up at the [facility], where he found a place to hide out. "I had to get away from everyone." He spent 4 days hidden in his space. During this time his depression and anxiety were increasing and he became suicidal again, so came back to the ER. Assessment What has happened this shift: Pt. walking in the halls at change of shift. He reports "hard to sleep last night because of that CPAP." Pt asked about resources and talked about staying in this area. Resources provided for [place] and housing. He played [id number] for a few hours today. PRN Nicotine was given Q2hrs, as requested. S/I, H/I: denies states "depressed" A/VH: N/A Sleep: Up all shift ADL's: Pt well dressed and has good hygiene Group attendance: Yes Were meds taken: Yes Any med S/E: None Mental Status Exam Appearance: Neat and appropriately dressed Eye contact: Direct Behavior: Cooperative Speech: Soft, [place] Mood: Pleasant Affect: Bright Thought process: WNL Thought Content: playing guitar, wanting to move to a new room Cognition: A&O X4 Insight: Fair Judgment: Poor Interventions PRN's used: Nicotine Lozenge X4 Therapeutic interventions: provided therapeutic communication and active listening, monitored behavior and need for intervention, medication administration/education/monitoring, encouraged independent performance of ADLs and group attendance, and maintained Q 15 min safety checks. Restraints/seclusion/emergency medication: N/A Justification of Continued Inpatient Treatment: Pt. requires interruption of current crisis, medication adjustments, and a safe and supportive environment.
[2019-04-04 19:57] VITALS: BP 122/83
[2019-04-04] MEDS: traZODone 50mg tablet PO SCH (21:35)
[2019-04-05] MEDS: hydrOXYzine 25 MG tablet PO PRN (07:33)
[2019-04-05] MEDS: NICOTINE POLACRILEX 2 MG LOZENGE BC PRN ×7 (07:34→20:41)
[2019-04-05] MEDS: sertraline 50mg tablet PO SCH (07:34)
--- NOTE | 2019-04-05 13:20 | NUR ---
Nursing Progress Note: Legal hold: VOL Client on involuntary status for DTS Report received from nurse, DAPHNIE Cazares with use of SBAR Why are they here: Pt recently discharged on 03/22 after a SA where he tried to slice his wrist, "But it took too long." He reports that he was discharged to the [facility] where he spent 2 days. During that 2 days, he says that he saw many things that were too intimidating for him, so he decided to leave. He says that he walked and ended up at the [facility], where he found a place to hide out. "I had to get away from everyone." He spent 4 days hidden in his space. During this time his depression and anxiety were increasing and he became suicidal again, so came back to the ER. Assessment What has happened this shift: Pt. walking in the halls at change of shift. He reports "I slept so much better." Pt requesting nicotine lozenge q2hrs. Pt engages well with peers. Currently titrating the sertraline for his depression. S/I, H/I: denies states "depressed" A/VH: N/A Sleep: Up all shift ADL's: Pt well dressed and has good hygiene Group attendance: Yes Were Meds taken: Yes Any med S/E: None Mental Status Exam Appearance: Neat and appropriately dressed Eye contact: Direct Behavior: Cooperative Speech: Soft, [place] Mood: Pleasant Affect: Bright Thought process: WNL Thought Content: concerned over where he will stay when discharged from here. Cognition: A&O X4 Insight: Fair Judgment: Poor Interventions PRN's used: Nicotine Lozenge X4 Therapeutic interventions: provided therapeutic communication and active listening, monitored behavior and need for intervention, medication administration/education/monitoring, encouraged independent performance of ADLs and group attendance, and maintained Q 15 min safety checks. Restraints/seclusion/emergency medication: N/A Justification of Continued Inpatient Treatment: Pt. requires interruption of current crisis, medication adjustments, and a safe and supportive environment.
[2019-04-05 19:51] VITALS: BP 108/61
[2019-04-05] MEDS: traZODone 50mg tablet PO SCH (20:57)
--- NOTE | 2019-04-06 00:31 | NUR ---
Nursing Progress Note: Legal hold: VOL Client on involuntary status for DTS Report received from nurse, DAPHNIE Aguilera with use of SBAR Why are they here: Pt recently discharged on 03/22 after a SA where he tried to slice his wrist, "But it took too long." He reports that he was discharged to the [facility] where he spent 2 days. During that 2 days, he says that he saw many things that were too intimidating for him, so he decided to leave. He says that he walked and ended up at the [facility], where he found a place to hide out. "I had to get away from everyone." He spent 4 days hidden in his space. During this time his depression and anxiety were increasing and he became suicidal again, so came back to the ER. Assessment What has happened this shift: Pt watching a movie in group room at start of shift. Pt was seen socializing with other pt's. Pt was pleasant and cooperative with 1:1. pt requested 2 nicotine lozenges and accepted HS meds with no issues. pt was in bed at approx 21:30. S/I, H/I: denies A/VH: N/A Sleep: asleep at this time ADL's: Pt well dressed and has good hygiene Group attendance: Yes Were Meds taken: Yes Any med S/E: None Mental Status Exam Appearance: Neat and appropriately dressed Eye contact: Direct Behavior: Cooperative Speech: Soft, [place] Mood: Pleasant Affect: Bright Thought process: WNL Thought Content: seeking spiritual activities in [facility] Cognition: A&O X4 Insight: Fair Judgment: Poor Interventions PRN's used: Nicotine Lozenge X2 Therapeutic interventions: provided therapeutic communication and active listening, monitored behavior and need for intervention, medication administration/education/monitoring, encouraged independent performance of ADLs and group attendance, and maintained Q 15 min safety checks. Restraints/seclusion/emergency medication: N/A Justification of Continued Inpatient Treatment: Pt. requires interruption of current crisis, medication adjustments, and a safe and supportive environment.
[2019-04-06 08:01] VITALS: BP 109/72
[2019-04-06] MEDS: sertraline 50mg tablet PO SCH (08:28)
[2019-04-06] MEDS: NICOTINE POLACRILEX 2 MG LOZENGE BC PRN ×6 (08:31→21:56)
[2019-04-06] MEDS: hydrOXYzine 25 MG tablet PO PRN (10:43)
--- NOTE | 2019-04-06 13:12 | NUR ---
Met with Ct to discuss discharge plan [facility]. Informed him he can go through Access at [facility] for psychiatry follow up if needed.
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
[2019-04-06] MEDS ORDERED: sertraline 25mg tablet PO ONE (17:25)
[2019-04-06 20:00] VITALS: BP 116/75
[2019-04-06] MEDS: traZODone 50mg tablet PO SCH (21:12)
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
[2019-04-07 07:10] VITALS: BP 97/60
[2019-04-07] MEDS: sertraline 50mg tablet PO SCH (08:21)
[2019-04-07] MEDS: sertraline 25mg tablet PO SCH (08:21)
[2019-04-07] MEDS: NICOTINE POLACRILEX 2 MG LOZENGE BC PRN ×7 (08:42→21:38)
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
[2019-04-07 20:11] VITALS: BP 111/60
[2019-04-07] MEDS: traZODone 50mg tablet PO SCH (21:38)
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
[2019-04-08 07:36] VITALS: BP 108/59
[2019-04-08] MEDS: sertraline 25mg tablet PO SCH (07:43)
[2019-04-08] MEDS: NICOTINE POLACRILEX 2 MG LOZENGE BC PRN ×4 (07:44→14:16)
[2019-04-08] MEDS: sertraline 50mg tablet PO SCH (07:44)
[2019-04-08] MEDS: hydrOXYzine 25 MG tablet PO PRN (11:26)
--- NOTE | 2019-04-08 11:49 | NUR ---
Reassessment: Patient is eating well, 75-100% intake, meeting needs. No nutrition problem at this time. Recommendations: 1) Continue regular diet 2) Bowel care PRN 3) Weekly wt Addendum: 04/08/19 at [address] Amended: Links added.
[2019-04-08] MEDS ORDERED: NICO-668 MM (12:14)
[2019-04-08] MEDS ORDERED: TRAZ-219 PO (12:14)
[2019-04-08] MEDS ORDERED: SERT100T10 PO (12:14)
[2019-04-08] MEDS ORDERED: NICO-631 TD (12:14)
[2019-04-08] MEDS ORDERED: HYDR-3686 PO (12:14)
--- NOTE | 2019-04-08 15:59 | NUR ---
DISCHARGE NOTE Patient is discharged at 1418, he left the unit accompanied by [employer] port cdl a driver. He will be transported to the [facility] via [employer] Marriage Therapist. Discharge instructions given and patient provided opportunity to ask questions. Patients valuables are provided back to patient. Patients mood has improved since admit and he is no longer reporting feeling suicidal. Today, he reports anxiety r/t discharge, RN allowed patient the time he needed to discuss his feelings. Patient is provided prescriptions for nicotine replacement. Follow up appointments will be made during the stay at [facility] with [facility].
== END 2019-04-08 14:18 | disposition short-term general hospital (02) | DRG 751 ==
LOC: ADULT MH 21:45
PROVIDERS: ADMIT Psychiatry & Neurology Psychiatry; ATTEND Psychiatry & Neurology Psychiatry
DX: F33.2 Major depressive disorder, recurrent severe without psychotic features (principal); R45.851 Suicidal ideations; F12.90 Cannabis use, unspecified, uncomplicated; F17.210 Nicotine dependence, cigarettes, uncomplicated; F10.10 Alcohol abuse, uncomplicated; M54.9 Dorsalgia, unspecified; F41.9 Anxiety disorder, unspecified; M51.36 Other intervertebral disc degeneration, lumbar region; Z83.3 Family history of diabetes mellitus; Z59.0 Homelessness; Z79.899 Other long term (current) drug therapy; Z98.52 Vasectomy status
CPT/HCPCS: 87081; Z7610

== ENCOUNTER 2019-04-20 15:37 | Emergency (ER) | payer MEDICAID ==
[~2019-04-20] VITALS: Ht 177.8 cm; Wt 75.0 kg
[~2019-04-20 15:37] MED LIST changes: +NICO-631 TD; +SERT100T10 PO; -SERT25TA PO
[2019-04-20 16:15] LABS: URINE AMPHETAMINE SCREEN NEGATIVE (Neg); URINE BARBITUATE SCREEN NEGATIVE (Neg); URINE BENZODIAZEPINES SCREEN NEGATIVE (Neg); URINE CANNABINOID SCREEN NEGATIVE (Neg); URINE COCAINE SCREEN NEGATIVE (Neg); URINE METHADONE SCREEN NEGATIVE (Neg); URINE OPIATE SCREEN NEGATIVE (Neg); URINE PHENCYCLIDINE SCREEN NEGATIVE (Neg)
[2019-04-20 16:19] LABS: BASOPHILS # (AUTO) 0.1 X10'3 (0-0.2); BASOPHILS % (AUTO) 1.1 % (0-1); EOSINOPHILS # (AUTO) 0.1 X10'3 (0-0.9); EOSINOPHILS % (AUTO) 2.2 % (0-6); HEMATOCRIT 39.4 % (42.0-52.0); HEMOGLOBIN 13.4 g/dl (14.0-17.9); LYMPHOCYTES # (AUTO) 1.7 X10'3 (1.1-4.8); LYMPHOCYTES % (AUTO) 25.9 % (21-51); MEAN CORPUSCULAR HEMOGLOBIN 29.5 PG (27.0-31.0); MEAN CORPUSCULAR VOLUME 86.7 FL (78-98); MEAN PLATELET VOLUME 7.9 FL (7.4-10.4); MONOCYTES # (AUTO) 0.3 X10'3 (0-0.9); MONOCYTES % (AUTO) 4.5 % (2-12); NEUTROPHILS # (AUTO) 4.4 X10'3 (1.8-7.7); NEUTROPHILS % (AUTO) 66.3 % (42-75); PLATELET COUNT 214 X10'3 (140-440); RED BLOOD COUNT 4.54 X10'6 (4.70-6.10); RED CELL DISTRIBUTION WIDTH 13.8 % (11.5-14.5); WHITE BLOOD COUNT 6.6 X10'3 (4.5-11.0)
[2019-04-20 16:21] LABS: CLARITY,URINE CLEAR (Clear); COLOR,URINE YELLOW (Yellow); GLUCOSE, URINE NEGATIVE (Neg); KETONES,URINE NEGATIVE (Neg); LEUKOCYTE ESTERASE ,URINE NEGATIVE (Neg); NITRITES, URINE NEGATIVE (Neg); OCCULT BLOOD,URINE NEGATIVE (Neg); PROTEIN,URINE NEGATIVE (Neg); UROBILINOGEN,URINE 0.2 E.U/dL (0.2-1.0)
[2019-04-20 16:23] LABS: UA COLLECTION TYPE CLN CATCH MIDSTREAM
--- NOTE | 2019-04-20 16:28 | NUR ---
breaking primary RN, pt sitting up in bed, talking quietlt with staff, no agitation apparent
[2019-04-20 16:34] LABS: ALANINE AMINOTRANSFERASE 31 U/L (12-78); ALBUMIN 4.1 G/DL (3.4-5.0); ALBUMIN/GLOBULIN RATIO 1.2 (1.1-1.5); ALKALINE PHOSPHATASE 67 IU/L (46-116); ANION GAP 9 (8-16); ASPARTATE AMINO TRANSFERASE 21 U/L (10-37); BILIRUBIN,TOTAL 0.3 MG/DL (0.1-1.0); BLOOD UREA NITROGEN 11 MG/DL (7-18); BUN/CREATININE RATIO 13.3 (5.4-32.0); CALCIUM 9.2 MG/DL (8.5-10.1); CHLORIDE 104 MMOL/L (99-107); CREATININE 0.83 MG/DL (0.60-1.10); ETHANOL < 0.010 GM/DL (0.0-0.010); GLUCOSE 88 MG/DL (70-104); POTASSIUM 3.6 MMOL/L (3.5-5.1); SODIUM 139 MMOL/L (135-145); TOTAL CARBON DIOXIDE 26.5 MMOL/L (24-32); TOTAL PROTEIN 7.5 G/DL (6.4-8.2); eGFR > 90 ML/MIN
--- NOTE | 2019-04-20 18:31 | NUR ---
pt packet sent to [facility]
--- NOTE | 2019-04-20 19:24 | NUR ---
The patient is resting on his bed and waiting for [facility] to come and interview him. He was at the [facility] and reports he is suicidal with with a plan to hang himself. He reports his energy is low. He is eating well. He has been traveling around but has been in the [place] area for the past month. [facility] is here to evaluate for a 5150 hold.
[2019-04-20] MEDS ORDERED: TRAZ-219 PO (19:38)
[2019-04-20] MEDS ORDERED: SERT100T PO (19:38)
[2019-04-20] MEDS ORDERED: HYDR-3686 PO (19:41)
[2019-04-20] MEDS ORDERED: NICO-630 TOP (19:41)
[2019-04-20] MEDS ORDERED: NICO-631 TD (19:43)
--- NOTE | 2019-04-20 20:39 | NUR ---
The patient was seen by [facility] and placed on a 5150 hold
[2019-04-20] MEDS ORDERED: hydrOXYzine 25 MG tablet PO PRN (20:40)
[2019-04-20] MEDS ORDERED: traZODone 50mg tablet PO SCH (21:00)
--- NOTE | 2019-04-20 22:54 | NUR ---
The patient appears to be sleeping
--- NOTE | 2019-04-21 01:18 | NUR ---
The patient appears to be asleep.
--- NOTE | 2019-04-21 03:13 | NUR ---
The patient appears to be sleeping
--- NOTE | 2019-04-21 04:54 | NUR ---
The patient appears to be sleeping
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
[2019-04-21 05:51] VITALS: BP 106/60
--- NOTE | 2019-04-21 06:30 | NUR ---
Pt is lying in bed, appears to be sleeping.
[2019-04-21] MEDS ORDERED: nicotine 14mg patch - 24hr TD SCH (08:00)
[2019-04-21] MEDS ORDERED: sertraline 50mg tablet PO SCH (08:00)
--- NOTE | 2019-04-21 08:30 | NUR ---
Pt awake and eating breakfast. Pt rated his depression as "the worst," 10/10, endorsing SI with 2 different plans on his mind. One plan is to hang himself, the other is to find a stick to make a stake and try to stab/impale himself through the heart. Pt contracts for safety here.
--- NOTE | 2019-04-21 10:30 | NUR ---
Pt is lying in bed on his right side, appears to be sleeping.
--- NOTE | 2019-04-21 12:30 | NUR ---
Pt lying in bed appears to be sleeping.
--- NOTE | 2019-04-21 12:51 | NUR ---
Rizwana from the [facility] office called to say pt has been accepted at [facility], p/u time ETA in 20 minutes.
--- NOTE | 2019-04-21 13:15 | NUR ---
Chapter Relations Administrator here to pick pt up and transport him to [facility] [place], all belongings returned, ambulated off the unit accompanied by airport driver and security.
== END 2019-04-21 13:15 ==
LOC: ER 15:38
DX: R45.851 Suicidal ideations (principal); F32.9 Major depressive disorder, single episode, unspecified; F41.9 Anxiety disorder, unspecified; F17.200 Nicotine dependence, unspecified, uncomplicated; Z79.899 Other long term (current) drug therapy; Z56.0 Unemployment, unspecified; Z59.0 Homelessness
CPT/HCPCS: 36415; 80053; 80305; 80320; 81003; 85025; 99285

== ENCOUNTER 2019-10-26 09:47 | Emergency (ER) | payer MEDICAID ==
[~2019-10-26] VITALS: Ht 182.9 cm; Wt 82.7 kg
[~2019-10-26 09:47] MED LIST changes: +ESCI5TAB; +MIRT15TA8 PO; +NICO-668 BC; -NICO-668 MM; +OLAN2.5T3; +OLAN5TAB26 PO; +SERT100T PO; -SERT100T10 PO; -TRAZ-219 PO
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
[2019-10-26] MEDS ORDERED: ibuprofen tablet 400 MG TABLET PO ONE (10:15)
--- NOTE | 2019-10-26 10:24 | NUR ---
at bedside, obtaining report from pt
--- NOTE | 2019-10-26 11:18 | NUR ---
PT IN THE [facility] REQUESTING FOOD AND STATES THAT THE [employer]BU[employer]OF[employer] IS NOT WORKING
--- NOTE | 2019-10-26 11:31 | NUR ---
PROVIDER WITH PT
--- NOTE | 2019-10-26 11:43 | NUR ---
PT IS AMBULATING TO THE RESTROOM
[2019-10-26 13:49] VITALS: BP 144/94
== END 2019-10-26 13:46 | disposition home or self-care (01) ==
LOC: ER 09:47
DX: S20.212A Contusion of left front wall of thorax, initial encounter (principal); S70.12XA Contusion of left thigh, initial encounter; M25.522 Pain in left elbow; F41.9 Anxiety disorder, unspecified; H53.149 Visual discomfort, unspecified; F32.9 Major depressive disorder, single episode, unspecified; F17.200 Nicotine dependence, unspecified, uncomplicated; Z72.89 Other problems related to lifestyle; Z60.2 Problems related to living alone; Z59.0 Homelessness; Z56.0 Unemployment, unspecified; Z79.899 Other long term (current) drug therapy; Y04.8XXA Assault by other bodily force, initial encounter; Y93.89 Activity, other specified; Y92.89 Other specified places as the place of occurrence of the external cause; Y99.8 Other external cause status
CPT/HCPCS: 70450; 71045; 73030; 73080; 73552; 99284

== ENCOUNTER 2019-11-20 14:21 | Emergency (ER) | payer MEDICAID ==
[~2019-11-20] VITALS: Ht 182.9 cm; Wt 88.8 kg
[2019-11-20 14:41] VITALS: BP 144/86
[2019-11-20] MEDS ORDERED: sertraline 50mg tablet PO ONE (15:25)
[2019-11-20] MEDS ORDERED: OLANZapine 5mg rapidly disint. tablet PO ONE (15:25)
--- NOTE | 2019-11-20 16:23 | NUR ---
Patient has hx. of suicide attempts, and expresses prior to coming in he felt like hurting himself. Doctor assessed him and has decided not to hold him after evalutaing his mental health status. Pt. has not been taking his meds. MD is reviewing meds and updating them and patient has been told he needs to get his psych medications filled.
[2019-11-20] MEDS ORDERED: MIRT15TA8 PO (17:10)
[2019-11-20] MEDS ORDERED: OLAN2.5T3 PO (17:10)
[2019-11-20] MEDS ORDERED: ESCI5TAB PO (17:10)
== END 2019-11-20 17:32 | disposition home or self-care (01) ==
LOC: ER 14:21
DX: F32.9 Major depressive disorder, single episode, unspecified (principal); R45.851 Suicidal ideations; F10.920 Alcohol use, unspecified with intoxication, uncomplicated; F41.9 Anxiety disorder, unspecified; Z59.0 Homelessness; Z91.14 Patient's other noncompliance with medication regimen; Z56.0 Unemployment, unspecified; Z79.899 Other long term (current) drug therapy; Y90.9 Presence of alcohol in blood, level not specified
CPT/HCPCS: 99284

== ENCOUNTER 2020-03-05 23:46 | Emergency (ER) | payer MEDICAID ==
[~2020-03-05] VITALS: Ht 180.3 cm; Wt 86.8 kg
[~2020-03-05 23:46] MED LIST changes: -ESCI5TAB; +ESCI5TAB PO; -OLAN2.5T3; +OLAN2.5T3 PO
--- NOTE | 2020-03-06 00:42 | NUR ---
on assessment pt reports a hx of si attempt involving cutting forearms. pt reports that today he had the same plan due to the loss of one son, and the alienation of two other sons. pt hasn't taken psych meds in a month. pt reports that he has a friend who talked him out of attempting earlier this week. pt voluntarily enters ed for care and evaluation. pt placed in green scrubs and room prepped for psych pt. pt compliant with care. pt denies hi.
--- NOTE | 2020-03-06 00:45 | NUR ---
FRIEND : REAGAN [phone]
[2020-03-06 00:59] LABS: BASOPHILS # (AUTO) 0.1 X10'3 (0-0.2); BASOPHILS % (AUTO) 0.9 % (0-1); EOSINOPHILS # (AUTO) 0.4 X10'3 (0-0.9); EOSINOPHILS % (AUTO) 5.6 % (0-6); HEMOGLOBIN 13.3 g/dl (14.0-17.9); LYMPHOCYTES # (AUTO) 2.5 X10'3 (1.1-4.8); LYMPHOCYTES % (AUTO) 37.8 % (21-51); MEAN CORPUSCULAR HEMOGLOBIN 28.5 PG (27.0-31.0); MEAN CORPUSCULAR HGB CONC 33.3 g/dL (33.0-36.5); MEAN CORPUSCULAR VOLUME 85.7 FL (78-98); MEAN PLATELET VOLUME 8.6 FL (7.4-10.4); MONOCYTES # (AUTO) 0.5 X10'3 (0-0.9); MONOCYTES % (AUTO) 7.8 % (2-12); NEUTROPHILS # (AUTO) 3.1 X10'3 (1.8-7.7); NEUTROPHILS % (AUTO) 47.9 % (42-75); PLATELET COUNT 199 X10'3 (140-440); RED BLOOD COUNT 4.67 X10'6 (4.70-6.10); RED CELL DISTRIBUTION WIDTH 17.7 % (11.5-14.5); WHITE BLOOD COUNT 6.5 X10'3 (4.5-11.0)
[2020-03-06 01:04] LABS: ALANINE AMINOTRANSFERASE 30 U/L (12-78); ALBUMIN 3.6 G/DL (3.4-5.0); ALKALINE PHOSPHATASE 63 IU/L (46-116); ANION GAP 9 (8-16); ASPARTATE AMINO TRANSFERASE 28 U/L (10-37); BILIRUBIN,TOTAL 0.3 MG/DL (0.1-1.0); BLOOD UREA NITROGEN 9 MG/DL (7-18); BUN/CREATININE RATIO 9.3 (5.4-32.0); CALCIUM 8.6 MG/DL (8.5-10.1); CHLORIDE 106 MMOL/L (99-107); CREATININE 0.97 MG/DL (0.60-1.10); GLUCOSE 95 MG/DL (70-104); POTASSIUM 3.7 MMOL/L (3.5-5.1); SODIUM 139 MMOL/L (135-145); TOTAL CARBON DIOXIDE 23.9 MMOL/L (24-32); TOTAL PROTEIN 7.2 G/DL (6.4-8.2); eGFR 82 ML/MIN
[2020-03-06 01:05] LABS: URINE AMPHETAMINE SCREEN NEGATIVE (Neg); URINE BARBITUATE SCREEN NEGATIVE (Neg); URINE BENZODIAZEPINES SCREEN NEGATIVE (Neg); URINE CANNABINOID SCREEN NEGATIVE (Neg); URINE COCAINE SCREEN NEGATIVE (Neg); URINE METHADONE SCREEN NEGATIVE (Neg); URINE OPIATE SCREEN NEGATIVE (Neg); URINE PHENCYCLIDINE SCREEN NEGATIVE (Neg)
[2020-03-06 01:35] LABS: ETHANOL < 0.010 GM/DL (0.0-0.010)
[2020-03-06] MEDS ORDERED: ESCI5TAB PO (01:38)
[2020-03-06] MEDS ORDERED: MIRT15TA8 PO (01:38)
[2020-03-06] MEDS ORDERED: OLAN5TAB5 PO ×2 (01:38)
[2020-03-06] MEDS ORDERED: SERT100T PO (01:38)
--- NOTE | 2020-03-06 02:50 | NUR ---
Recieved report from DAPHNIE Cheney.
--- NOTE | 2020-03-06 03:33 | NUR ---
PATIENT'S PACKET WAS SENT TO [facility] .
--- NOTE | 2020-03-06 03:57 | NUR ---
Patient up to void. Normal gait. Returns to bed and falls asleep without problem.
--- NOTE | 2020-03-06 07:00 | NUR ---
PT IS SLEEPING. NO ISSUES AT THIS TIME
[2020-03-06] MEDS: ESCITALOPRAM OXALATE 5 MG TABLET PO SCH (08:00)
--- NOTE | 2020-03-06 08:00 | NUR ---
PT IS SLEEPING. NO ISSUES AT THIS TIME
[2020-03-06] MEDS: OLANZAPINE 5 MG TABLET PO SCH (08:21)
--- NOTE | 2020-03-06 09:00 | NUR ---
PT IS SLEEPING. NO ISSUES AT THIS TIME
--- NOTE | 2020-03-06 10:00 | NUR ---
PT IS SLEEPING. NO ISSUES AT THIS TIME
--- NOTE | 2020-03-06 11:00 | NUR ---
PT IS SLEEPING. NO ISSUES AT THIS TIME
--- NOTE | 2020-03-06 12:00 | NUR ---
PT IS EATING LUNCH. NO ISSUES.
--- NOTE | 2020-03-06 13:00 | NUR ---
PT IS SLEEPING. NO ISSUES AT THIS TIME
--- NOTE | 2020-03-06 14:00 | NUR ---
PT IS SLEEPING. NO ISSUES AT THIS TIME
--- NOTE | 2020-03-06 15:00 | NUR ---
PT IS SLEEPING. NO ISSUES AT THIS TIME
--- NOTE | 2020-03-06 16:00 | NUR ---
PT IS SLEEPING. NO ISSUES AT THIS TIME
--- NOTE | 2020-03-06 17:00 | NUR ---
PT IS SLEEPING. NO ISSUES
[2020-03-06] MEDS ORDERED: sertraline 50mg tablet PO SCH (21:00)
[2020-03-06] MEDS ORDERED: mirtazapine 15mg tablet PO SCH (21:00)
[2020-03-06] MEDS ORDERED: OLANZAPINE 5 MG TABLET PO SCH (21:00)
--- NOTE | 2020-03-07 00:35 | NUR ---
sleeping quietly after taking night time meds and eating dinner.
[2020-03-07 05:12] VITALS: BP 118/71
--- NOTE | 2020-03-07 06:00 | NUR ---
pt is resting. no issues at this time
--- NOTE | 2020-03-07 07:00 | NUR ---
pt is sleeping
--- NOTE | 2020-03-07 08:00 | NUR ---
pt is awake eating breakfast
[2020-03-07] MEDS: OLANZAPINE 5 MG TABLET PO SCH (08:21)
[2020-03-07] MEDS: ESCITALOPRAM OXALATE 5 MG TABLET PO SCH (08:22)
--- NOTE | 2020-03-07 09:00 | NUR ---
pt is resting. no issues at this time
--- NOTE | 2020-03-07 11:19 | NUR ---
pt accepted at [facility].
== END 2020-03-07 15:50 ==
LOC: ER 23:46
DX: R45.851 Suicidal ideations (principal); F41.9 Anxiety disorder, unspecified; F32.9 Major depressive disorder, single episode, unspecified; Z60.2 Problems related to living alone; Z59.0 Homelessness; Z56.0 Unemployment, unspecified; Z79.899 Other long term (current) drug therapy
CPT/HCPCS: 36415; 80053; 80305; 80320; 85025; 99285

== ENCOUNTER 2020-06-10 12:24 | Emergency (ER) | payer MEDICAID ==
[~2020-06-10] VITALS: Ht 175.3 cm; Wt 81.8 kg
[~2020-06-10 12:24] MED LIST changes: +ASPI-1071 PO; +ATOR20TA66 PO; +ESCI20TA PO; +ESCI20TA45 PO; +GABA100C PO; -HYDR-3686 PO; -NICO-631 TD; -NICO-668 BC; +OLAN10TA19 PO; +OLAN10TA3 PO; -OLAN2.5T3 PO; -OLAN5TAB26 PO; +OLAN5TAB5 PO; +RIVA20TA PO; +TRAZ150T78 PO; +metoprolol tartrate tablet PO
[2020-06-10 13:16] LABS: BASOPHILS % (AUTO) 0.8 % (0-1); EOSINOPHILS # (AUTO) 0.1 X10'3 (0-0.9); EOSINOPHILS % (AUTO) 1.2 % (0-6); HEMATOCRIT 41.1 % (42.0-52.0); HEMOGLOBIN 13.9 g/dl (14.0-17.9); LYMPHOCYTES # (AUTO) 2.1 X10'3 (1.1-4.8); LYMPHOCYTES % (AUTO) 33.2 % (21-51); MEAN CORPUSCULAR HEMOGLOBIN 29.4 PG (27.0-31.0); MEAN CORPUSCULAR HGB CONC 33.9 g/dL (33.0-36.5); MEAN CORPUSCULAR VOLUME 86.8 FL (78-98); MEAN PLATELET VOLUME 7.9 FL (7.4-10.4); MONOCYTES # (AUTO) 0.6 X10'3 (0-0.9); MONOCYTES % (AUTO) 9.5 % (2-12); NEUTROPHILS # (AUTO) 3.5 X10'3 (1.8-7.7); NEUTROPHILS % (AUTO) 55.3 % (42-75); PLATELET COUNT 222 X10'3 (140-440); RED BLOOD COUNT 4.74 X10'6 (4.70-6.10); RED CELL DISTRIBUTION WIDTH 14.9 % (11.5-14.5); WHITE BLOOD COUNT 6.3 X10'3 (4.5-11.0)
[2020-06-10 13:29] LABS: ALANINE AMINOTRANSFERASE 84 U/L (12-78); ALBUMIN 3.5 G/DL (3.4-5.0); ALBUMIN/GLOBULIN RATIO 0.9 (1.1-1.5); ALKALINE PHOSPHATASE 141 IU/L (46-116); ANION GAP 12 (8-16); ASPARTATE AMINO TRANSFERASE 51 U/L (10-37); BILIRUBIN,TOTAL 0.4 MG/DL (0.1-1.0); BLOOD UREA NITROGEN 12 MG/DL (7-18); BUN/CREATININE RATIO 12.9 (5.4-32.0); CALCIUM 8.6 MG/DL (8.5-10.1); CHLORIDE 106 MMOL/L (99-107); CREATININE 0.93 MG/DL (0.60-1.10); ETHANOL 0.192 GM/DL (0.0-0.010); GLUCOSE 86 MG/DL (70-104); POTASSIUM 3.9 MMOL/L (3.5-5.1); SODIUM 140 MMOL/L (135-145); TOTAL CARBON DIOXIDE 22.3 MMOL/L (24-32); TOTAL PROTEIN 7.6 G/DL (6.4-8.2); eGFR 86 ML/MIN
--- NOTE | 2020-06-10 13:47 | NUR ---
sleeping on left side, no obvious signs of distress.
[2020-06-10 14:18] LABS: URINE AMPHETAMINE SCREEN NEGATIVE (Neg); URINE BARBITUATE SCREEN NEGATIVE (Neg); URINE BENZODIAZEPINES SCREEN NEGATIVE (Neg); URINE CANNABINOID SCREEN NEGATIVE (Neg); URINE COCAINE SCREEN NEGATIVE (Neg); URINE METHADONE SCREEN NEGATIVE (Neg); URINE OPIATE SCREEN NEGATIVE (Neg); URINE PHENCYCLIDINE SCREEN NEGATIVE (Neg)
[2020-06-10] MEDS ORDERED: ATOR20TA PO (14:35)
[2020-06-10] MEDS ORDERED: RIVA10TA PO (14:35)
[2020-06-10] MEDS ORDERED: OLAN10TA3 PO (14:35)
[2020-06-10] MEDS ORDERED: ESCI20TA25 PO (14:35)
[2020-06-10] MEDS ORDERED: ASPI81TA52 PO (14:35)
--- NOTE | 2020-06-10 14:58 | NUR ---
pt asking for more food, stating he hasn't had food for a few days. given saltines and yogurt after he had a lunch from the cafeteria.
--- NOTE | 2020-06-10 15:30 | NUR ---
chart faxed to [facility] office
--- NOTE | 2020-06-10 17:48 | NUR ---
pt up to bathroom again. giving the pt water
--- NOTE | 2020-06-10 17:49 | NUR ---
[facility] office has pt's packet
--- NOTE | 2020-06-10 19:00 | NUR ---
pt is awake at bedside, pacing
--- NOTE | 2020-06-10 20:48 | NUR ---
PT seen by [facility], 5150 upheld
[2020-06-10] MEDS: atorvastatin 20mg tablet PO SCH (21:11)
[2020-06-10] MEDS: rivaroxaban 10mg tablet PO SCH (21:11)
[2020-06-10] MEDS: olanzapine 10mg tablet PO SCH (21:11)
--- NOTE | 2020-06-10 21:30 | NUR ---
Pt is medication compliant, after taking medication sits and reads
--- NOTE | 2020-06-11 02:09 | NUR ---
Pt asleep on back, RR WNL
--- NOTE | 2020-06-11 04:36 | NUR ---
Pt is resting on L side respirations even and unlabored
--- NOTE | 2020-06-11 07:00 | NUR ---
pt is resting in his room. no issues
[2020-06-11 07:12] LABS: CLARITY,URINE CLEAR (Clear); COLOR,URINE STRAW (Yellow); GLUCOSE, URINE NEGATIVE (Neg); KETONES,URINE NEGATIVE (Neg); LEUKOCYTE ESTERASE ,URINE NEGATIVE (Neg); NITRITES, URINE NEGATIVE (Neg); OCCULT BLOOD,URINE NEGATIVE (Neg); PROTEIN,URINE NEGATIVE (Neg); UROBILINOGEN,URINE 0.2 E.U/dL (0.2-1.0)
[2020-06-11 07:14] LABS: UA COLLECTION TYPE CLN CATCH MIDSTREAM
--- NOTE | 2020-06-11 08:13 | NUR ---
pt is resting in his room. no issues
[2020-06-11] MEDS: ESCITALOPRAM OXALATE 5 MG TABLET PO SCH (08:44)
[2020-06-11] MEDS: aspirin 81mg tablet.DR PO SCH (08:44)
--- NOTE | 2020-06-11 09:00 | NUR ---
pt is resting in his room. no issues
--- NOTE | 2020-06-11 10:00 | NUR ---
pt is resting in his room. no issues
--- NOTE | 2020-06-11 11:00 | NUR ---
pt is resting in his room. no issues
--- NOTE | 2020-06-11 12:01 | NUR ---
[facility]
--- NOTE | 2020-06-11 14:00 | NUR ---
PT CAME BACK COVID POSITIVE. ACCORDING TO THE PT HE TESTED POSITIVE ON May AND HIS ISOLATION IS OVER. CHARGE NURSE, [facility] OFFICE AWARE OF COVID TEST RESULTS
--- NOTE | 2020-06-11 15:00 | NUR ---
PLACEMENT IS ON HOLD UNTIL COVID ISSUES ARE RESOLVED
--- NOTE | 2020-06-11 16:00 | NUR ---
PT HAS HIS MASK ON AND IS ISOLATED BEST POSSIBLE
--- NOTE | 2020-06-11 17:15 | NUR ---
PT IS SITTING IN HIS ROOM. NO ISSUES AT THIS TIME
--- NOTE | 2020-06-11 18:30 | NUR ---
pt is resting in his room. no issues
--- NOTE | 2020-06-11 19:02 | NUR ---
INFECTION CONTROL: DR ALCANTARA SPOKE WITH IN REGARDS TO + COVID RETEST RESULT AFTER PATIENT ALREADY TESDTED POSITIVE FOR COVID ON MAY 30, 2020 AND COMPLETED HOME ISOLATION 06/09/2020 PER [place] COVID TEAM FROM A LETTER VERIFIED FROM [employer]/ SCREEN SHOT PLACED IN PAPER CHART.
--- NOTE | 2020-06-11 20:42 | NUR ---
Pt. in bed resting quietly.
--- NOTE | 2020-06-11 21:10 | NUR ---
MEDICATION COMPLIANT, CHALKYITSIK. TOOK ALL MEDS PRESCRIBED. COOPERATIVE
[2020-06-11] MEDS: olanzapine 10mg tablet PO SCH (21:11)
[2020-06-11] MEDS: rivaroxaban 10mg tablet PO SCH (21:11)
[2020-06-11] MEDS: atorvastatin 20mg tablet PO SCH (21:11)
--- NOTE | 2020-06-11 22:45 | NUR ---
SUPINE RESTING EYES CLOSED
--- NOTE | 2020-06-11 23:31 | NUR ---
EYES CLOSED LYING SUPINE NO SIGNS OF DISTRESS
--- NOTE | 2020-06-12 00:20 | NUR ---
EYES CLOSED LYING SUPINE NO SIGNS OF DISTRESS
--- NOTE | 2020-06-12 01:40 | NUR ---
EYES CLOSED LYING SUPINE NO SIGNS OF DISTRESS
--- NOTE | 2020-06-12 02:40 | NUR ---
EYES CLOSED LYING SUPINE NO SIGNS OF DISTRESS, EYES CLOSED SNORING
--- NOTE | 2020-06-12 03:22 | NUR ---
EYES CLOSED LYING SUPINE NO SIGNS OF DISTRESS
--- NOTE | 2020-06-12 04:30 | NUR ---
NO SIGNS OF DISTRESS, SLEEPING
--- NOTE | 2020-06-12 05:54 | NUR ---
EYES CLOSED LYING ON RIGHT SIDE NO SIGNS OF DISTRESS
--- NOTE | 2020-06-12 07:00 | NUR ---
Received pt asleep in bed without signs of distress. Pt up x 1 to the bathroom and then returned to bed.
[2020-06-12] MEDS: ESCITALOPRAM OXALATE 5 MG TABLET PO SCH (08:18)
[2020-06-12] MEDS: aspirin 81mg tablet.DR PO SCH (08:19)
--- NOTE | 2020-06-12 09:00 | NUR ---
Pt awoke for breakfast and was cooperative with am assessment and took his medications. No complaints or requests at this time. According to [facility], pt lost his bed at [facility] while the Covid results were straightened out last night and is now awaiting placement again.
--- NOTE | 2020-06-12 11:00 | NUR ---
Pt continues to sleep in bed without signs of distress.
--- NOTE | 2020-06-12 15:08 | NUR ---
Pt up for lunch then returned to sleep. No complaints
--- NOTE | 2020-06-12 15:10 | NUR ---
Received Pt in bed sleeping w/o distress.
--- NOTE | 2020-06-12 17:16 | NUR ---
Pt remains in bed sleeping w/o distress.
[2020-06-12 17:33] VITALS: BP 127/78
--- NOTE | 2020-06-12 18:21 | NUR ---
Pt awake in bed reading a book. Pleasant and cooperative. Pt currently eating dinner.
--- NOTE | 2020-06-12 19:59 | NUR ---
[facility] called and plans to take pt.
--- NOTE | 2020-06-12 20:40 | NUR ---
pt given sandwich. pt to go to [facility] soon.
--- NOTE | 2020-06-12 21:03 | NUR ---
report called to [facility], including the need for nighttime meds.
[2020-06-12] MEDS ORDERED: METO25TA6 PO (21:20)
== END 2020-06-12 21:05 | disposition home or self-care (01) ==
LOC: ER 12:25
DX: U07.1 COVID-19 (principal); R45.851 Suicidal ideations; F41.9 Anxiety disorder, unspecified; F32.9 Major depressive disorder, single episode, unspecified; Z72.89 Other problems related to lifestyle; Z60.2 Problems related to living alone; Z56.0 Unemployment, unspecified; Z59.0 Homelessness; Z79.899 Other long term (current) drug therapy
CPT/HCPCS: 36415; 80053; 80305; 80320; 81003; 85025; 87635; 99285; C9803

== ENCOUNTER 2020-06-25 20:41 | Emergency (ER) | payer MEDICAID ==
[~2020-06-25] VITALS: Ht 180.3 cm; Wt 90.0 kg
[~2020-06-25 20:41] MED LIST changes: -ASPI-1071 PO; +ASPI81TA52 PO; +ATOR20TA PO; -ATOR20TA66 PO; -ESCI20TA45 PO; -ESCI5TAB PO; -GABA100C PO; +METO25TA6 PO; -MIRT15TA8 PO; +NICO-668 BC; +NICO-687 TD; -OLAN10TA19 PO; -OLAN5TAB5 PO; -RIVA20TA PO; -SERT100T PO; -TRAZ150T78 PO; -metoprolol tartrate tablet PO
[2020-06-25 21:52] LABS: BASOPHILS # (AUTO) 0.1 X10'3 (0-0.2); EOSINOPHILS # (AUTO) 0.2 X10'3 (0-0.9); EOSINOPHILS % (AUTO) 3.9 % (0-6); HEMATOCRIT 40.7 % (42.0-52.0); HEMOGLOBIN 13.7 g/dl (14.0-17.9); LYMPHOCYTES % (AUTO) 36.5 % (21-51); MEAN CORPUSCULAR HEMOGLOBIN 29.4 PG (27.0-31.0); MEAN CORPUSCULAR HGB CONC 33.5 g/dL (33.0-36.5); MEAN CORPUSCULAR VOLUME 87.7 FL (78-98); MEAN PLATELET VOLUME 9.2 FL (7.4-10.4); MONOCYTES # (AUTO) 0.5 X10'3 (0-0.9); MONOCYTES % (AUTO) 8.5 % (2-12); NEUTROPHILS # (AUTO) 2.8 X10'3 (1.8-7.7); NEUTROPHILS % (AUTO) 50.1 % (42-75); PLATELET COUNT 226 X10'3 (140-440); RED BLOOD COUNT 4.64 X10'6 (4.70-6.10); RED CELL DISTRIBUTION WIDTH 15.2 % (11.5-14.5); WHITE BLOOD COUNT 5.5 X10'3 (4.5-11.0)
[2020-06-25 22:10] LABS: ALANINE AMINOTRANSFERASE 71 U/L (12-78); ALBUMIN 3.3 G/DL (3.4-5.0); ALBUMIN/GLOBULIN RATIO 0.9 (1.1-1.5); ALKALINE PHOSPHATASE 92 IU/L (46-116); ANION GAP 10 (8-16); ASPARTATE AMINO TRANSFERASE 35 U/L (10-37); BILIRUBIN,TOTAL 0.3 MG/DL (0.1-1.0); BLOOD UREA NITROGEN 15 MG/DL (7-18); BUN/CREATININE RATIO 12.7 (5.4-32.0); CHLORIDE 109 MMOL/L (99-107); CREATININE 1.18 MG/DL (0.60-1.10); GLUCOSE 146 MG/DL (70-104); POTASSIUM 3.9 MMOL/L (3.5-5.1); SODIUM 143 MMOL/L (135-145); TOTAL CARBON DIOXIDE 24.5 MMOL/L (24-32); TOTAL PROTEIN 6.8 G/DL (6.4-8.2); eGFR 65 ML/MIN
[2020-06-25 23:12] VITALS: BP 112/73
== END 2020-06-25 23:13 | disposition home or self-care (01) ==
LOC: ER 20:42
DX: R07.89 Other chest pain (principal); Z86.711 Personal history of pulmonary embolism; Z56.0 Unemployment, unspecified; Z59.0 Homelessness; Z72.89 Other problems related to lifestyle; Z79.84 Long term (current) use of oral hypoglycemic drugs; Z79.899 Other long term (current) drug therapy
CPT/HCPCS: 36415; 71045; 80053; 83880; 84484; 85025; 93005; 99285

== ENCOUNTER 2020-06-27 22:21 | Emergency (ER) | payer MEDICAID ==
[~2020-06-27] VITALS: Ht 180.3 cm; Wt 90.9 kg
[2020-06-28 00:05] VITALS: BP 115/46
== END 2020-06-28 00:25 | disposition home or self-care (01) ==
LOC: ER 22:21
DX: R07.89 Other chest pain (principal); R11.0 Nausea; I25.2 Old myocardial infarction; F41.9 Anxiety disorder, unspecified; F32.9 Major depressive disorder, single episode, unspecified; Z86.711 Personal history of pulmonary embolism; Z72.89 Other problems related to lifestyle; Z60.2 Problems related to living alone; Z56.0 Unemployment, unspecified; Z79.82 Long term (current) use of aspirin; Z79.899 Other long term (current) drug therapy
CPT/HCPCS: 36415; 84484; 93005; 99284